=== PATIENT | male | born 1960 | race Caucasian/White ===

== ENCOUNTER 2019-02-09 13:47 | Inpatient (IN) | payer OTHER ==
[2019-02-09] MEDS ORDERED: MORPHINE SULFATE 4 MG/ML SYRINGE IM STA (14:14)
--- NOTE | 2019-02-09 14:51 | US ---
EXAMINATION TYPE: US venous doppler duplex LE RT DATE OF EXAM: 02/09/2019 2:41 PM COMPARISON: NONE CLINICAL HISTORY: Pain. Right lower leg pain and bruising SIDE PERFORMED: Right TECHNIQUE: The lower extremity deep venous system is examined utilizing real time linear array sonog autumn with graded compression, doppler sonography and color-flow sonography. VESSELS IMAGED: External Iliac Vein (EIV) Common Femoral Vein Deep Femoral Vein Greater Saphenous Vein * Femoral Vein Popliteal Vein Small Saphenous Vein * Proximal Calf Veins (* superficial vessels) Right Leg: Positive for DVT, there is nonocclusive thrombus in right pop vein through prox calf vein s, the vessel shows echoes and some echgenic stranding, and in partially compressible. IMPRESSION: 1. Right lower extremity deep venous ultrasound has nonocclusive thrombus within the deep venous stru ctures. Deep venous thrombosis is present on the right.
[2019-02-09] MEDS ORDERED: SODIUM CHLORIDE 0.9% 1,000 ML IV ONE (15:06)
--- NOTE | 2019-02-09 15:08 | ED ---
Lower Extremity Injury HPI - General Chief Complaint: Extremity Injury, Lower Stated Complaint: poss blood clot-sent by [facility] Time Seen by Provider: 02/09/19 14:01 Source: patient, RN notes reviewed, old records reviewed Mode of arrival: ambulatory Limitations: no limitations - History of Present Illness Initial Comments: Patient is a 50-year-old male presenting to the emergency department today for check of right lower extremity swelling. Patient reports that one week ago he was at his home [place] at the beach. Patient reports that he tripped while in the ocean and landed on his leg and his knee. Because significant knee she reports he is here on vacation for both week he is going to visit a friend and have parties on his boat. Patient reports that he has had some minor shortness of breath. He recommended to emergency department after see [facility]. Patient flew here yesterday from [place]. Patient was sent here to rule out DVT. He's had no history of blood clots. - Related Data Home Medications Medication Instructions Recorded Confirmed Albuterol Inhaler [Ventolin Hfa 1 - 2 puff INHALATION RT-Q6H PRN 02/09/19 02/09/19 Inhaler] Albuterol Nebulized [Ventolin 2.5 mg INHALATION RT-QID PRN 02/09/19 02/09/19 Nebulized] Atorvastatin Calcium [Lipitor] 10 mg PO DAILY 02/09/19 02/09/19 Budesonide/Formoterol Fumarate 2 puff INHALATION RT-DAILY@1400 02/09/19 02/09/19 [Symbicort 160-4.5 Mcg Inhaler] Gabapentin [Neurontin] 100 mg PO DAILY 02/09/19 02/09/19 Gabapentin [Neurontin] 400 mg PO HS 02/09/19 02/09/19 Glimepiride [Amaryl] 4 mg PO BID 02/09/19 02/09/19 Lisinopril-Hctz 20-25 mg 1 tab PO DAILY 02/09/19 02/09/19 [Zestoretic 20-25] Tiotropium 18 Mcg/Puff [Spiriva] 1 cap INHALATION RT-DAILY 02/09/19 02/09/19 clonazePAM 0.5 mg PO DAILY 02/09/19 02/09/19 metFORMIN HCL 1,000 mg PO BID 02/09/19 02/09/19 traZODone HCL [Desyrel] 100 mg PO HS 02/09/19 02/09/19 Allergies Allergy/AdvReac Type Severity Reaction Status Date / Time No Known Allergies Allergy Verified 02/09/19 17:11 Review of Systems ROS Statement: Those systems with pertinent positive or pertinent negative responses have been documented in the HPI. ROS Other: All systems not noted in ROS Statement are negative. Past Medical History Past Medical History: Heart Failure, COPD, Hypertension, Pneumonia, Sleep Apnea/CPAP/BIPAP Additional Past Medical History / Comment(s): brain injury, acute respiratory failure, bilateral pneumothorax History of Any Multi-Drug Resistant Organisms: None Reported Past Surgical History: Orthopedic Surgery Additional Past Surgical History / Comment(s): left shoulder surgery, x3 left elbow surgeries Past Psychological History: Anxiety, Depression Smoking Status: Never smoker Past Alcohol Use History: Occasional Past Drug Use History: None Reported General Exam Limitations: no limitations General appearance: alert, in no apparent distress Head exam: Present: atraumatic, normocephalic, normal inspection Eye exam: Present: normal appearance, PERRL, EOMI. Absent: scleral icterus, conjunctival injection, periorbital swelling ENT exam: Present: normal exam, mucous membranes moist Neck exam: Present: normal inspection. Absent: tenderness, meningismus, lymphadenopathy Respiratory exam: Present: normal lung sounds bilaterally. Absent: respiratory distress, wheezes, rales, rhonchi, stridor Cardiovascular Exam: Present: regular rate, normal rhythm, normal heart sounds. Absent: systolic murmur, diastolic murmur, rubs, gallop, clicks GI/Abdominal exam: Present: soft, normal bowel sounds. Absent: distended, tenderness, guarding, rebound, rigid Extremities exam: Present: normal inspection, full ROM, normal capillary refill. Absent: tenderness, pedal edema, joint swelling, calf tenderness Right Upper Leg exam: Present: normal inspection, full ROM Knee exam: Present: full ROM, swelling (significant laxity within knee joint,patellar effusion noted. ). Absent: normal inspection Lower Leg exam: Present: swelling (Patient has swelling, discoloration over the lower extremity, significant ecchymosis extending from the lower calf up to the mid thigh.) Ankle exam: Present: normal inspection, full ROM Foot/Toe exam: Present: normal inspection, full ROM Neurovascular tendon exam: Present: no vascular compromise Gait: observed and normal Back exam: Present: normal inspection Neurological exam: Present: alert, oriented X3, CN II-XII intact Psychiatric exam: Present: normal affect, normal mood Skin exam: Present: warm, dry, intact, normal color. Absent: rash Course Vital Signs 02/09/19 02/09/19 13:48 16:52 Temperature 97.5 F L Pulse Rate 90 77 Respiratory 18 18 Rate Blood Pressure 129/62 137/88 O2 Sat by Pulse 97 96 Oximetry Medical Decision Making - Medical Decision Making Patient is a 58-year-old male presents today with significant lower extremity swelling. Concern for possible blood clot after traumatic injury after he fell on the beach one week ago. Patient flew here from his home in [place]. Patient has evidence of a significant hematoma over her lower extremity, phlegmonas appearance. There is significant effusion within the right knee joint. He has had some pain with range of motion. Dorsalis pedis pulses intact. At this time Patient had Doppler ultrasound which is positive for DVT within the proximal calf and to proximal popliteal veins. Patient started on high intensity heparin. He also complains of shortness of breath. CT angios the chest was negative for PE. At this time femur and tib-fib x-ray reviewed and negative for any acute osseous abnormality. Patient case discussed with Dr. uBi. Dr. Ann discussed the case with on-call vascular surgery who came to evaluate the Patient. He was evaluated by Dr. Bass. He agrees for admission for IV heparinization. - Lab Data Result diagrams: 02/09/19 15:22 02/09/19 15:22 Lab Results 02/09/19 02/09/19 02/09/19 Range/Units 15:22 15:22 15:22 WBC 9.3 (3.8-10.6) k/uL RBC 4.40 (4.30-5.90) m/uL Hgb 14.3 (13.0-17.5) gm/dL Hct 41.6 (39.0-53.0) % MCV 94.6 (80.0-100.0) fL MCH 32.6 (25.0-35.0) pg MCHC 34.4 (31.0-37.0) g/dL RDW 14.2 (11.5-15.5) % Plt Count 266 (150-450) k/uL Neutrophils % 74 % Lymphocytes % 18 % Monocytes % 4 % Eosinophils % 2 % Basophils % 1 % Neutrophils # 6.8 (1.3-7.7) k/uL Lymphocytes # 1.7 (1.0-4.8) k/uL Monocytes # 0.4 (0-1.0) k/uL Eosinophils # 0.2 (0-0.7) k/uL Basophils # 0.1 (0-0.2) k/uL PT 9.6 (9.0-12.0) sec INR 0.9 (<1.2) APTT 21.6 L (22.0-30.0) sec Sodium 142 (137-145) mmol/L Potassium 4.2 (3.5-5.1) mmol/L Chloride 106 (98-107) mmol/L Carbon Dioxide 25 (22-30) mmol/L Anion Gap 11 mmol/L BUN 21 H (9-20) mg/dL Creatinine 0.73 (0.66-1.25) mg/dL Est GFR (CKD-EPI)AfAm >90 (>60 ml/min/1.73 sqM) Est GFR (CKD-EPI)NonAf >90 (>60 ml/min/1.73 sqM) Glucose 200 H (74-99) mg/dL Calcium 9.8 (8.4-10.2) mg/dL Total Bilirubin 0.6 (0.2-1.3) mg/dL AST 19 (17-59) U/L ALT 15 L (21-72) U/L Alkaline Phosphatase 73 (38-126) U/L Total Protein 7.2 (6.3-8.2) g/dL Albumin 4.5 (3.5-5.0) g/dL 02/09/19 17:09 EKG shows sinus rhythm with immature subjective or ventricular compresses. Otherwise normal EKG. Ventricular rate 79 bpm. LA interval 156 ms. QRS duration is 104 ms. QTQTC 3-2/438 ms. - Radiology Data Radiology results: report reviewed Regular shortly ultrasound is nonocclusive thrombus within the deep venous structure. Deep venous thrombosis is present on the right. X-ray of the tib- fib is negative for any acute osseous adamantly. No acute osseous normality and regular. Degenerative joint she is in the right hip and knee. CT angio chest is negative for acute pulmonary embolism. Prominence of the right adrenal gland. Disposition Clinical Impression: Right leg DVT, Knee effusion, Fall Disposition: ADMITTED IP TO THIS HOSP Condition: Stable Is patient prescribed a controlled substance at d/c from ED?: No Referrals: Nonstaff,Physician [Primary Care Provider] - 1-2 days Time of Disposition: 17:09
[2019-02-09 15:35] LABS: Basophils # (A) 0.1 k/uL (0-0.2); Basophils % (A) 1 %; Eosinophils # (A) 0.2 k/uL (0-0.7); Eosinophils % (A) 2 %; HCT 41.6 % (39.0-53.0); HGB 14.3 gm/dL (13.0-17.5); Lymphocytes # (A) 1.7 k/uL (1.0-4.8); Lymphocytes % (A) 18 %; MCH 32.6 pg (25.0-35.0); MCHC 34.4 g/dL (31.0-37.0); MCV 94.6 fL (80.0-100.0); Mean Platelet Volume 7.3; Monocytes # (A) 0.4 k/uL (0-1.0); Monocytes % (A) 4 %; Neutrophils # (A) 6.8 k/uL (1.3-7.7); Neutrophils % (A) 74 %; Platelet Count 266 k/uL (150-450); RDW 14.2 % (11.5-15.5); WBC 9.3 k/uL (3.8-10.6)
--- NOTE | 2019-02-09 15:44 | XR ---
EXAMINATION TYPE: XR femur RT DATE OF EXAM: 02/09/2019 COMPARISON: None HISTORY: Pain following fall TECHNIQUE: 2 view right femur FINDINGS: There is narrowing of the joint space at the right hip. Degenerative changes are also noted at the knee. The visualized femur appears intact. No acute femoral fractures are evident. IMPRESSION: 1. No acute osseous abnormality right femur. 2. Degenerative joint changes of the right hip and right knee
--- NOTE | 2019-02-09 15:45 | XR ---
EXAMINATION TYPE: XR tibia fibula RT DATE OF EXAM: 02/09/2019 COMPARISON: None HISTORY: Fall, pain TECHNIQUE: 2 view right tibia and fibula FINDINGS: There are degenerative changes at the knee with narrowing of the medial lateral compartment joint spaces. No acute fractures are evident. Ankle appears unremarkable as visualized. No focal swelling is identified. Follow-up studies of the right femur or right tibia and fibula can be performed 7-10 days from acute trauma for continued pain. IMPRESSION: 1. No acute osseous abnormality.
[2019-02-09 15:59] LABS: ALT 15 U/L (21-72); AST 19 U/L (17-59); African American GFR (CKD) >90 (>60 ml/min/1.73 sqM); Albumin 4.5 g/dL (3.5-5.0); Alkaline Phosphatase 73 U/L (38-126); Anion Gap 11 mmol/L; Blood Urea Nitrogen 21 mg/dL (9-20); Calcium 9.8 mg/dL (8.4-10.2); Carbon Dioxide 25 mmol/L (22-30); Chloride 106 mmol/L (98-107); Glucose 200 mg/dL (74-99); Potassium 4.2 mmol/L (3.5-5.1); Sodium 142 mmol/L (137-145); Total Bilirubin 0.6 mg/dL (0.2-1.3); Total Protein 7.2 g/dL (6.3-8.2)
[2019-02-09 16:03] LABS: INR 0.9 (<1.2); Partial Thromboplastin Time 21.6 sec (22.0-30.0); Prothrombin Time 9.6 sec (9.0-12.0)
[2019-02-09] MEDS ORDERED: HEPARIN SODIUM,PORCINE 5,000 UNIT/ML 1 ML VIAL IV PRN (16:10)
[2019-02-09] MEDS ORDERED: HEPARIN SODIUM,PORCINE 10,000 UNIT/ML 1 ML VIAL IV ONE (16:10)
--- NOTE | 2019-02-09 16:25 | CT ---
CT CHEST FOR PULMONARY EMBOLISM. EXAMINATION TYPE: CT chest angio for PE DATE OF EXAM: 02/09/2019 INDICATION: Right knee pain after injury. Shortness of breath. CT DLP: 800.1 mGycm, Automated exposure control for dose reduction was used. CONTRAST: Patient injected with 100 mL of Isovue 370. COMPARISON: None TECHNIQUE: CT of the chest is performed on a spiral scan at 2 mm thick sections. Study is performed with intravenous contrast timed for evaluation for pulmonary embolism. This will limit additional po rtions of the evaluation. 3-D MIP images reconstructed by the technologist are reviewed on the compu ter in the coronal and sagittal planes. FINDINGS: No persistent filling defects are evident to suggest an acute pulmonary embolism. No mediastinal or hilar adenopathy enlarged by CT criteria is evident. The ascending aorta diameter at the level of the main pulmonary artery is 3.9 cm. The main pulmonary artery diameter at the bifur cation is 3.1 cm. No suspicious lung consolidations are evident. Limited CT section through the upper abdomen. There is some fullness of the posterior right adrenal g land with a thickness of 1.9 cm. IMPRESSIONS: 1. No acute pulmonary embolism. 2. Prominence of the right adrenal gland
[2019-02-09] MEDS: HEPARIN SOD,PORK IN 0.45% NACL 25,000 UNIT in 0.45% NACL 1 250ML.BAG IV SCH (16:50)
[2019-02-09] MEDS ORDERED: ACETAMINOPHEN TAB 325 MG TAB PO PRN (17:19)
[2019-02-09] MEDS ORDERED: NALOXONE 0.4 MG/ML 1 ML VIAL IV PRN (17:19)
[2019-02-09] MEDS ORDERED: ONDANSETRON 4 MG/2 ML VIAL IVP PRN (17:19)
[2019-02-09] MEDS ORDERED: IBUPROFEN 400 MG TAB PO PRN (17:19)
--- NOTE | 2019-02-09 17:42 | P.GSCN ---
History of Present Illness Consult date: 02/09/19 Reason for Consult: Right lower extremity swelling, DVT History of present illness: The patient is a 58-year-old male with a past medical history including obstructive sleep apnea,Chronic heart failure, COPD, hypertension, diabetes, neuropathy who presented for evaluation of his right lower trauma swelling. One week ago he was at the [place] in [place] where he lives, he reported he was swimming in the admission and had significant difficulty getting out with and had some traumatic feeling to his right knee. Beyond this he began having some bruising of his lower extremity. Approximately 3-4 days ago he began having increased swelling with some redness towards his lower leg and ankle. He has had some minor soreness of breath along with this. He denies any previous history of blood clot although his father did have one in the past. They're uncertain of the reason for that blood clot in the past. He denies any chest pains otherwise. He denies any nausea or vomiting. Past Medical History Past Medical History: Heart Failure, COPD, Hypertension, Pneumonia, Sleep Apnea/CPAP/BIPAP Additional Past Medical History / Comment(s): brain injury, acute respiratory failure, bilateral pneumothorax History of Any Multi-Drug Resistant Organisms: None Reported Past Surgical History: Orthopedic Surgery Additional Past Surgical History / Comment(s): left shoulder surgery, x3 left elbow surgeries Past Psychological History: Anxiety, Depression Smoking Status: Never smoker Past Alcohol Use History: Occasional Past Drug Use History: None Reported Medications and Allergies Home Medications Medication Instructions Recorded Confirmed Type Albuterol Inhaler [Ventolin Hfa 1 - 2 puff INHALATION RT-Q6H PRN 02/09/19 02/09/19 History Inhaler] Albuterol Nebulized [Ventolin 2.5 mg INHALATION RT-QID PRN 02/09/19 02/09/19 History Nebulized] Atorvastatin Calcium [Lipitor] 10 mg PO DAILY 02/09/19 02/09/19 History Budesonide/Formoterol Fumarate 2 puff INHALATION RT-DAILY@1400 02/09/19 02/09/19 History [Symbicort 160-4.5 Mcg Inhaler] Gabapentin [Neurontin] 100 mg PO DAILY 02/09/19 02/09/19 History Gabapentin [Neurontin] 400 mg PO HS 02/09/19 02/09/19 History Glimepiride [Amaryl] 4 mg PO BID 02/09/19 02/09/19 History Lisinopril-Hctz 20-25 mg 1 tab PO DAILY 02/09/19 02/09/19 History [Zestoretic 20-25] Tiotropium 18 Mcg/Puff [Spiriva] 1 cap INHALATION RT-DAILY 02/09/19 02/09/19 History clonazePAM 0.5 mg PO DAILY 02/09/19 02/09/19 History metFORMIN HCL 1,000 mg PO BID 02/09/19 02/09/19 History traZODone HCL [Desyrel] 100 mg PO HS 02/09/19 02/09/19 History Allergies Allergy/AdvReac Type Severity Reaction Status Date / Time No Known Allergies Allergy Verified 02/09/19 17:11 Surgical - Exam Vital Signs Temp Pulse Resp BP Pulse Ox 97.5 F L 90 18 129/62 97 02/09/19 13:48 02/09/19 13:48 02/09/19 13:48 02/09/19 13:48 02/09/19 13:48 General a pleasant cooperative male in no acute distress, obese HEENT normocephalic atraumatic, excellent motion intact Heart is regular in rate and rhythm Lungs showed no respiratory distress. Good lung excursion Abdomen is soft obese nontender nondistended Bilateral groins are clean, dry, intact. Extremities on the right lower extremity there is areas of ecchymosis from the calf through the knee. There is also some erythema likely due to venous congestion at the level of the ankle. No venous wound. He has palpable femoral, dorsalis pedis pulses bilaterally. Motor sensory is intact Cranial nerves II through XII grossly intact Normal mood and affect. Results - Labs 02/09/19 15:22 02/09/19 15:22 Abnormal Lab Results - Last 24 Hours (Table) 02/09/19 02/09/19 Range/Units 15:22 15:22 APTT 21.6 L (22.0-30.0) sec BUN 21 H (9-20) mg/dL Glucose 200 H (74-99) mg/dL ALT 15 L (21-72) U/L Diabetes panel 02/09/19 Range/Units 15:22 Sodium 142 (137-145) mmol/L Potassium 4.2 (3.5-5.1) mmol/L Chloride 106 (98-107) mmol/L Carbon Dioxide 25 (22-30) mmol/L BUN 21 H (9-20) mg/dL Creatinine 0.73 (0.66-1.25) mg/dL Glucose 200 H (74-99) mg/dL Calcium 9.8 (8.4-10.2) mg/dL AST 19 (17-59) U/L ALT 15 L (21-72) U/L Alkaline Phosphatase 73 (38-126) U/L Total Protein 7.2 (6.3-8.2) g/dL Albumin 4.5 (3.5-5.0) g/dL Calcium panel 02/09/19 Range/Units 15:22 Calcium 9.8 (8.4-10.2) mg/dL Albumin 4.5 (3.5-5.0) g/dL Pituitary panel 02/09/19 Range/Units 15:22 Sodium 142 (137-145) mmol/L Potassium 4.2 (3.5-5.1) mmol/L Chloride 106 (98-107) mmol/L Carbon Dioxide 25 (22-30) mmol/L BUN 21 H (9-20) mg/dL Creatinine 0.73 (0.66-1.25) mg/dL Glucose 200 H (74-99) mg/dL Calcium 9.8 (8.4-10.2) mg/dL Adrenal panel 02/09/19 Range/Units 15:22 Sodium 142 (137-145) mmol/L Potassium 4.2 (3.5-5.1) mmol/L Chloride 106 (98-107) mmol/L Carbon Dioxide 25 (22-30) mmol/L BUN 21 H (9-20) mg/dL Creatinine 0.73 (0.66-1.25) mg/dL Glucose 200 H (74-99) mg/dL Calcium 9.8 (8.4-10.2) mg/dL Total Bilirubin 0.6 (0.2-1.3) mg/dL AST 19 (17-59) U/L ALT 15 L (21-72) U/L Alkaline Phosphatase 73 (38-126) U/L Total Protein 7.2 (6.3-8.2) g/dL Albumin 4.5 (3.5-5.0) g/dL - Imaging Additional studies: Ultrasound of the right lower extremity and CT angiogram the chest are reviewed. There appears to be nonocclusive thrombus in the right popliteal and calf veins. No evidence of iliofemoral thrombus. Chest CT reveals no evidence of pulmonary embolism Assessment and Plan Assessment: #1 right lower extremity edema #2 right lower extremity trauma with ecchymosis #3 right lower extremity popliteal/calf DVT #4 diabetes #5 hypertension #6 COPD #7 congestive heart failure Plan: At this point there is no indication for thrombolysis. There is no evidence of cerulea dolens. This time would continue anticoagulation, even though this is essentially a minor DVT, given the patient's recent traumatic event in the extent of his ecchymosis of his lower extremity, would recommend doing this as at least an observation status and transitioning over to oral anticoagulation. This is discussed with the ER physician. The patient understands and seemingly agrees with the plan of care at this time. Activity as tolerated, would also involve orthopedics to evaluate his knee and lower extremity. There are no restrictions from a vascular surgery standpoint. Would place GEE hose compression stockings to the bilateral lower extremities and elevate when possible. Thank you for allowing me to participate in the care of this patient.
[2019-02-09] MEDS: MORPHINE SULFATE 4 MG/ML SYRINGE IV PRN ×2 (18:28→21:59)
[2019-02-09] MEDS: INSULIN ASPART (NovoLOG) 100 UNIT/ML VIAL SQ SCH (21:58)
[2019-02-09] MEDS: GABAPENTIN 400 MG CAP PO SCH (21:58)
[2019-02-09] MEDS: traZODone HCL 100 MG TAB PO SCH (21:58)
[2019-02-09] MEDS: GLIMEPIRIDE 4 MG TAB PO SCH (21:59)
[2019-02-09 22:12] LABS: Glucose,Whole Blood 197 mg/dL (75-99)
[2019-02-09] MEDS: ALBUTEROL NEBULIZED 2.5 MG/3 ML INHALATION PRN (23:27)
[2019-02-10] MEDS: HEPARIN SOD,PORK IN 0.45% NACL 25,000 UNIT in 0.45% NACL 1 250ML.BAG IV SCH ×3 (00:36→18:24)
[2019-02-10] MEDS: ALBUTEROL NEBULIZED 2.5 MG/3 ML INHALATION PRN ×2 (03:14→19:03)
[2019-02-10] MEDS: MORPHINE SULFATE 4 MG/ML SYRINGE IV PRN ×4 (05:06→18:14)
[2019-02-10 07:02] LABS: Glucose,Whole Blood 180 mg/dL (75-99)
[2019-02-10] MEDS: INSULIN ASPART (NovoLOG) 100 UNIT/ML VIAL SQ SCH ×4 (07:45→21:40)
[2019-02-10] MEDS: IPRATROPIUM 0.5 MG/2.5 ML NEBU INHALATION SCH ×4 (08:02→18:58)
[2019-02-10] MEDS: ATORVASTATIN 10 MG TAB PO SCH (08:43)
[2019-02-10] MEDS: GABAPENTIN 100 MG CAP PO SCH (08:43)
[2019-02-10] MEDS: LISINOPRIL-HCTZ 20-25 MG 1 EACH TAB PO SCH (08:43)
[2019-02-10] MEDS: GLIMEPIRIDE 4 MG TAB PO SCH ×2 (08:43→21:38)
[2019-02-10] MEDS ORDERED: PANTOPRAZOLE 40 MG/10 ML VIAL IV SCH (09:00)
[2019-02-10 09:06] LABS: Basophils % (A) 0 %; Eosinophils # (A) 0.2 k/uL (0-0.7); Eosinophils % (A) 2 %; HCT 39.1 % (39.0-53.0); HGB 13.3 gm/dL (13.0-17.5); Lymphocytes # (A) 2.2 k/uL (1.0-4.8); Lymphocytes % (A) 24 %; MCH 32.6 pg (25.0-35.0); MCHC 33.9 g/dL (31.0-37.0); MCV 96.2 fL (80.0-100.0); Mean Platelet Volume 7.3; Monocytes # (A) 0.5 k/uL (0-1.0); Monocytes % (A) 5 %; Neutrophils # (A) 6.1 k/uL (1.3-7.7); Neutrophils % (A) 67 %; Platelet Count 247 k/uL (150-450); RBC 4.06 m/uL (4.30-5.90); RDW 14.5 % (11.5-15.5); WBC 9.1 k/uL (3.8-10.6)
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
[2019-02-10] MEDS: clonazePAM 0.5 MG TAB PO SCH (09:34)
[2019-02-10] MEDS ORDERED: LIDOCAINE 1% INJ 10MG/ML (20 ML MDV) SQ ONE (10:35)
[2019-02-10 11:39] LABS: Glucose,Whole Blood 216 mg/dL (75-99)
[2019-02-10] MEDS: NITROGLYCERIN SL TABS 0.4 MG TAB SUBLINGUAL PRN ×3 (11:39→12:12)
--- NOTE | 2019-02-10 14:10 | P.HPIM ---
History of Present Illness Chief Complaint: Right lower extremity pain This very pleasant 58-year-old gentleman with a past medical history significant for obesity, or failure, COPD, hypertension, diabetes comes in for above- mentioned complaint. Patient says that he's basically from [place] and is visiting [place]. He said that a week ago he went to the beach in [place] and went swimming around 3:00 in the morning and injured his right lower extremity. He said that he noticed some bruising in his right lower extremity after that. 3-4 days ago he started noticing increased pain and increased swelling with some redness. He came to [place] in the meanwhile and his symptoms were actually getting worse so he came into the ER for further admission and management. Patient otherwise says that this morning he started feeling heaviness in the chest as if summary sitting on top of of him pain around 7 x 10 intensity no radiation, he said that he is also feeling short of breath and difficulty taking deep breaths, no cough, he does not complain of any abdominal pain, nausea and vomiting, no diarrhea constipation, no tingling numbness on his extremities, and no itch no rash. ER course-patient's vitals show temperature 97.9 pulse 80 respiration 18 blood pressure 107/69 satting 95% on room air. WBC 9.1 hemoglobin 13.3 platelets [address] troponins less than 0.012. [address] of the chest was done which was negative . Ultrasound the right lower extremity showed DVT on the right popliteal vein through the proximal calf veins Patient had a CT of the chest done which was negative. Patient was started heparin drip and admitted to the hospitalist service for evaluation and management Review of Systems All systems: negative Past Medical History Past Medical History: Heart Failure, COPD, Hypertension, Pneumonia, Sleep Apnea/CPAP/BIPAP Additional Past Medical History / Comment(s): brain injury, acute respiratory failure, bilateral pneumothorax History of Any Multi-Drug Resistant Organisms: None Reported Past Surgical History: Orthopedic Surgery Additional Past Surgical History / Comment(s): left shoulder surgery, x3 left elbow surgeries Past Anesthesia/Blood Transfusion Reactions: No Reported Reaction Past Psychological History: Anxiety, Depression Smoking Status: Never smoker Past Alcohol Use History: Occasional Past Drug Use History: None Reported - Past Family History Mother Family Medical History: Dementia Father Family Medical History: Cancer Medications and Allergies Home Medications Medication Instructions Recorded Confirmed Type Albuterol Inhaler [Ventolin Hfa 1 - 2 puff INHALATION RT-Q6H PRN 02/09/19 02/09/19 History Inhaler] Albuterol Nebulized [Ventolin 2.5 mg INHALATION RT-QID PRN 02/09/19 02/09/19 History Nebulized] Atorvastatin Calcium [Lipitor] 10 mg PO DAILY 02/09/19 02/09/19 History Budesonide/Formoterol Fumarate 2 puff INHALATION RT-DAILY@1400 02/09/19 02/09/19 History [Symbicort 160-4.5 Mcg Inhaler] Gabapentin [Neurontin] 100 mg PO DAILY 02/09/19 02/09/19 History Gabapentin [Neurontin] 400 mg PO HS 02/09/19 02/09/19 History Glimepiride [Amaryl] 4 mg PO BID 02/09/19 02/09/19 History Lisinopril-Hctz 20-25 mg 1 tab PO DAILY 02/09/19 02/09/19 History [Zestoretic 20-25] Tiotropium 18 Mcg/Puff [Spiriva] 1 cap INHALATION RT-DAILY 02/09/19 02/09/19 History clonazePAM 0.5 mg PO DAILY 02/09/19 02/09/19 History metFORMIN HCL 1,000 mg PO BID 02/09/19 02/09/19 History traZODone HCL [Desyrel] 100 mg PO HS 02/09/19 02/09/19 History Allergies Allergy/AdvReac Type Severity Reaction Status Date / Time No Known Allergies Allergy Verified 02/09/19 17:11 Physical Exam Vitals: Vital Signs Temp Pulse Pulse Resp BP BP BP 02/10/19 12:10 77 128/80 02/10/19 11:53 78 02/10/19 11:50 69 108/59 02/10/19 11:43 78 02/10/19 11:39 71 106/69 02/10/19 08:33 75 127/71 02/10/19 08:13 80 02/10/19 08:02 80 02/10/19 07:00 98.0 F 75 16 130/71 02/10/19 03:30 76 02/10/19 03:15 76 02/10/19 00:40 98.0 F 76 16 126/71 07/18/19 23:40 80 02/09/19 23:27 80 02/09/19 21:37 98.3 F 79 17 98/51 02/09/19 18:38 97.9 F 84 16 127/73 02/09/19 17:38 87 18 134/87 02/09/19 16:52 77 18 137/88 Pulse Ox 02/10/19 12:10 02/10/19 11:53 02/10/19 11:50 99 02/10/19 11:43 02/10/19 11:39 95 02/10/19 08:33 95 02/10/19 08:13 02/10/19 08:02 02/10/19 07:00 96 02/10/19 03:30 02/10/19 03:15 02/10/19 00:40 92 L 02/09/19 23:40 02/09/19 23:27 02/09/19 21:37 97 02/09/19 18:38 97 02/09/19 17:38 99 02/09/19 16:52 96 Intake and Output 02/09/19 02/10/19 02/10/19 22:59 06:59 14:59 Intake Total 705.117 450 Output Total 900 Balance 705.117 -450 Intake: Intake, IV Titration 225.117 250 Amount Heparin Sod,Pork in 0.45% 225.117 250 NaCl 25,000 unit In 0.45 % NaCl 1 250ml.bag @ 14. 2835 UNITS/KG/HR 23 mls/ hr IV .[id number] [facility] Rx#: [id number] Oral 480 200 Output: Urine 900 Other: Voiding Method Toilet # Voids 1 1 On exam, alert and oriented x3. Morbidly obese HEENT: Conjunctivae normal. eyes normal. NECK: No JVD. No thyroid enlargement. No LNs CARDIOVASCULAR: S1, S2 muffled. No murmur RESPIRATION: Breath sounds diminished in the bases. No rhonchi or crackles. No bronchial breathing. ABDOMEN: Soft, nontender . No guarding. no masses palpable. No ascites, No hepatosplenomegaly.Bowel sounds heard. LEGS: Right lower extremity is more swollen dried in the midshin area and having bruising all over up to the thigh on the lateral side NERVOUS SYSTEM: Cranial N 2-12 grossly normal. Moves all 4 limbs. No focal deficits. No sensory deficit. No signs of cerebellar dysfucntion. Skin: no ulcer no rash Joints: Patient was also having pain in the right knee Results CBC & Chem 7: 02/10/19 08:01 02/09/19 15:22 Labs: Abnormal Lab Results - Last 24 Hours (Table) 02/09/19 02/09/19 02/09/19 Range/Units 15:22 15:22 20:46 RBC (4.30-5.90) m/uL APTT 21.6 L 57.8 H (22.0-30.0) sec BUN 21 H (9-20) mg/dL Glucose 200 H (74-99) mg/dL POC Glucose (mg/dL) (75-99) mg/dL ALT 15 L (21-72) U/L 02/09/19 02/10/19 02/10/19 Range/Units 21:50 06:42 08:01 RBC 4.06 L (4.30-5.90) m/uL APTT (22.0-30.0) sec BUN (9-20) mg/dL Glucose (74-99) mg/dL POC Glucose (mg/dL) 197 H 180 H (75-99) mg/dL ALT (21-72) U/L 02/10/19 02/10/19 Range/Units 08:01 11:32 RBC (4.30-5.90) m/uL APTT 54.2 H (22.0-30.0) sec BUN (9-20) mg/dL Glucose (74-99) mg/dL POC Glucose (mg/dL) 216 H (75-99) mg/dL ALT (21-72) U/L Thrombosis Risk Factor Assmnt - Choose All That Apply Any of the Below Risk Factors Present?: Yes Each Factor Represents 1 point: Age 41-60 years Thrombosis Risk Factor Assessment Total Risk Factor Score: 1 Thrombosis Risk Factor Assessment Level: Low Risk Assessment and Plan Assessment: - Right lower extremity DVT - Chest pain need to rule out the cause - Right right knee pain - Obesity - MEKA - Hypertension - Diabetes Plan - We'll admit the patient to [facility] with telemetry under observation - The patient currently controlled on heparin. We'll ask case management to help him up with executive vice president and chief financial officer for the [employer] - Also cardiology is consulted as the patient was complaining of chest pain in the morning. We'll monitor the patient's EKG and his tropes. He was also complaining of active chest pains we'll give him some nitro SUBLINGUAL to help with the pain. - We'll resume the patient's rest of the medications - DVT and GI prophylaxis - We will we'll order for lab work in the morning - Patient is an observation - Patient is full code
--- NOTE | 2019-02-10 14:57 | XR ---
EXAMINATION TYPE: XR foot complete RT DATE OF EXAM: 02/10/2019 CLINICAL HISTORY: pain TECHNIQUE: Frontal, lateral and oblique images of the right foot are obtained. COMPARISON: None. FINDINGS: There is no acute fracture/dislocation evident. [id number] degenerative narrowing fi rst metatarsal phalangeal joint space. Subchondral cyst formation. The overlying soft tissue appears unremarkable. IMPRESSION: There is no acute fracture or dislocation. ICD 10 NO FRACTURE, INITIAL EVALUATION
[2019-02-10 16:44] LABS: Glucose,Whole Blood 202 mg/dL (75-99)
[2019-02-10 20:07] LABS: Glucose,Whole Blood 219 mg/dL (75-99)
[2019-02-10] MEDS: GABAPENTIN 400 MG CAP PO SCH (21:38)
[2019-02-10] MEDS: traZODone HCL 100 MG TAB PO SCH (21:39)
[2019-02-11] MEDS: MORPHINE SULFATE 4 MG/ML SYRINGE IV PRN ×3 (00:14→16:33)
[2019-02-11] MEDS: HEPARIN SOD,PORK IN 0.45% NACL 25,000 UNIT in 0.45% NACL 1 250ML.BAG IV SCH ×3 (01:59→22:21)
[2019-02-11 07:05] LABS: Glucose,Whole Blood 176 mg/dL (75-99)
[2019-02-11] MEDS: ALBUTEROL NEBULIZED 2.5 MG/3 ML INHALATION PRN ×4 (07:11→20:17)
[2019-02-11] MEDS: Acetaminophen-Codeine 300-30mg TAB PO PRN ×2 (07:41→14:21)
[2019-02-11] MEDS: PANTOPRAZOLE 40 MG TABLET PO SCH (07:41)
[2019-02-11] MEDS: INSULIN ASPART (NovoLOG) 100 UNIT/ML VIAL SQ SCH ×4 (07:44→20:47)
[2019-02-11 08:40] LABS: Basophils % (A) 0 %; Eosinophils # (A) 0.1 k/uL (0-0.7); Eosinophils % (A) 2 %; HCT 38.3 % (39.0-53.0); HGB 12.8 gm/dL (13.0-17.5); Lymphocytes # (A) 1.6 k/uL (1.0-4.8); Lymphocytes % (A) 20 %; MCH 32.1 pg (25.0-35.0); MCHC 33.3 g/dL (31.0-37.0); MCV 96.1 fL (80.0-100.0); Mean Platelet Volume 7.7; Monocytes # (A) 0.4 k/uL (0-1.0); Monocytes % (A) 5 %; Neutrophils # (A) 5.9 k/uL (1.3-7.7); Neutrophils % (A) 73 %; Platelet Count 234 k/uL (150-450); RBC 3.99 m/uL (4.30-5.90); RDW 14.5 % (11.5-15.5); WBC 8.1 k/uL (3.8-10.6)
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
[2019-02-11] MEDS: GLIMEPIRIDE 4 MG TAB PO SCH ×2 (09:05→20:47)
[2019-02-11] MEDS: clonazePAM 0.5 MG TAB PO SCH (09:05)
[2019-02-11] MEDS: ATORVASTATIN 10 MG TAB PO SCH (09:05)
[2019-02-11] MEDS: LISINOPRIL-HCTZ 20-25 MG 1 EACH TAB PO SCH (09:05)
[2019-02-11] MEDS: GABAPENTIN 100 MG CAP PO SCH (09:05)
[2019-02-11 09:22] LABS: African American GFR (CKD) >90 (>60 ml/min/1.73 sqM); Anion Gap 11 mmol/L; Blood Urea Nitrogen 13 mg/dL (9-20); Calcium 9.1 mg/dL (8.4-10.2); Carbon Dioxide 25 mmol/L (22-30); Chloride 105 mmol/L (98-107); Glucose 147 mg/dL (74-99); Potassium 3.7 mmol/L (3.5-5.1); Sodium 141 mmol/L (137-145)
[2019-02-11 11:28] LABS: Glucose,Whole Blood 231 mg/dL (75-99)
--- NOTE | 2019-02-11 11:43 | P.PN ---
Subjective Progress Note Date: 02/11/19 Principal diagnosis: Right lower extremity dvt Patient seen and examined. Doing well. No new complaints. States leg swelling and pain is stable. Denies any fevers, chills, nausea, vomiting, chest pain or sob. Objective - Vital Signs Vital signs: Vital Signs Temp 98.4 F 02/11/19 07:00 Pulse 84 02/11/19 11:19 Resp 16 02/11/19 07:00 BP 129/75 02/11/19 07:00 Pulse Ox 98 02/11/19 07:00 Intake & Output 02/10/19 02/11/19 02/11/19 18:59 06:59 18:59 Intake Total 700 899.803 210.141 Output Total 900 Balance -200 899.803 210.141 Intake: Intake, IV Titration 500 219.803 210.141 Amount Heparin Sod,Pork in 0.45% 500 219.803 210.141 NaCl 25,000 unit In 0.45 % NaCl 1 250ml.bag @ 14. 2835 UNITS/KG/HR 23 mls/ hr IV .[id number] [facility] Rx#: [id number] Oral 200 680 Output: Urine 900 Other: Voiding Method Toilet Toilet # Voids 2 1 - Constitutional General appearance: Present: morbidly obese - EENT Eyes: Present: PERRLA - Respiratory Respiratory: bilateral: CTA - Cardiovascular Rhythm: regular - Integumentary Integumentary Comment(s): echymosis right lower extremity with edema extending from the calf to the knee. No wounds. Palpable dp pulses bilaterally. - Labs CBC & Chem 7: 02/11/19 07:09 02/11/19 07:09 Labs: Abnormal Lab Results - Last 24 Hours (Table) 02/10/19 02/10/19 02/10/19 Range/Units 11:32 16:39 20:05 RBC (4.30-5.90) m/uL Hgb (13.0-17.5) gm/dL Hct (39.0-53.0) % APTT (22.0-30.0) sec Glucose (74-99) mg/dL POC Glucose (mg/dL) 216 H 202 H 219 H (75-99) mg/dL 02/11/19 02/11/19 02/11/19 Range/Units 07:04 07:09 07:09 RBC 3.99 L (4.30-5.90) m/uL Hgb 12.8 L (13.0-17.5) gm/dL Hct 38.3 L (39.0-53.0) % APTT 138.9 H* (22.0-30.0) sec Glucose (74-99) mg/dL POC Glucose (mg/dL) 176 H (75-99) mg/dL 02/11/19 02/11/19 Range/Units 07:09 11:26 RBC (4.30-5.90) m/uL Hgb (13.0-17.5) gm/dL Hct (39.0-53.0) % APTT (22.0-30.0) sec Glucose 147 H (74-99) mg/dL POC Glucose (mg/dL) 231 H (75-99) mg/dL Assessment and Plan Assessment: #1 right lower extremity edema #2 right lower extremity trauma with ecchymosis #3 right lower extremity popliteal/calf DVT #4 diabetes #5 hypertension #6 COPD #7 congestive heart failure Plan: No vascular surgical intervention. continue anticoagulation- will need oral anticoagulation (Xarelto or Eliquis) x 3 months. follow up in office in 2 weeks for repeat lower extremity ultrasound. discussed importance of elevation of his extremity. will re-eval at your request.
--- NOTE | 2019-02-11 13:50 | P.PN ---
Subjective This is a pleasant 58 years old male with past medical history of heart failure, COPD, hypertension, sleep apnea on CPAP/BiPAP. Presents with fall, right knee injury and right DVT. Patient has already been started on heparin drip. When I saw the patient today for the first time he was resting in bed comfortable, not in distress. No chest pain or dyspnea. He still have some right leg pain and swelling although it is improving significantly. Also patient has been evaluated by orthopedic team, is a status post right knee aspiration. Patient is mobile with no difficulty discussed with staff review of systems CONSTITUTIONAL: No fever, no malaise, no fatigue. HEENT: No recent visual problems or hearing problems. Denied any sore throat. CARDIOVASCULAR: No orthopnea, PND, no palpitations, no syncope. PULMONARY: No shortness of breath, no cough, no hemoptysis. GASTROINTESTINAL: No diarrhea, no nausea, no vomiting, no abdominal pain. Normoactive bowel sounds. NEUROLOGICAL: No headaches, no weakness, no numbness. HEMATOLOGICAL: Denies any bleeding or petechiae. GENITOURINARY: Denies any burning micturition, frequency, or urgency. MUSCULOSKELETAL/RHEUMATOLOGICAL: Denies any joint pain, swelling, or any muscle pain. ENDOCRINE: Denies any polyuria or polydipsia. Active Medications Generic Name Dose Route Start Last Admin Trade Name Freq PRN Reason Stop Dose Admin Acetaminophen 650 mg 02/09/19 17:19 Tylenol Tab PO Q6HR PRN Mild Pain or Fever > 100.5 Acetaminophen/Codeine Phosphate 1 each 02/09/19 17:19 02/11/19 07:41 Tylenol #3 PO 1 each Q4HR PRN Administration Moderate Pain Albuterol Sulfate 2.5 mg 02/09/19 20:42 02/11/19 11:04 Ventolin Nebulized INHALATION 2.5 mg RT-QID PRN Administration Shortness Of Breath Atorvastatin Calcium 10 mg 02/10/19 09:00 02/11/19 09:05 Lipitor PO 10 mg DAILY NICKI Administration Clonazepam 0.5 mg 02/10/19 09:00 02/11/19 09:05 Klonopin PO 0.5 mg DAILY NICKI Administration Gabapentin 100 mg 02/10/19 09:00 02/11/19 09:05 Neurontin PO 100 mg DAILY NICKI Administration Gabapentin 400 mg 02/09/19 21:00 02/10/19 21:38 Neurontin PO 400 mg HS NICKI Administration Glimepiride 4 mg 02/09/19 21:00 02/11/19 09:05 Amaryl PO 4 mg BID NICKI Administration Lisinopril/HCTZ 1 each 02/10/19 09:00 02/11/19 09:05 Zestoretic 20-25 PO 1 each DAILY NICKI Administration Heparin Sodium (Porcine) 0 unit 02/09/19 16:10 Heparin IV PER PROTOCOL PRN Low PTT Protocol Heparin Sodium/Sodium Chloride 250 mls @ 23 mls/hr 02/09/19 16:15 02/11/19 12:22 25,000 unit/ Sodium Chloride IV 15 units/kg/hr .[id number] NICKI 24.154 mls/hr Administration Protocol 14.2835 UNITS/KG/HR Insulin Aspart 0 unit 02/09/19 21:00 02/11/19 12:13 Novolog SQ 8 unit ACHS NICKI Administration Protocol Miscellaneous Information 0 each 02/11/19 13:46 Coumadin Per Pharmacy MISCELLANE DIRECTED PRN P & T Morphine Sulfate 4 mg 02/09/19 17:19 02/11/19 12:18 Morphine Sulfate (Inj) IV 4 mg Q4HR PRN Administration Severe Pain Naloxone HCl 0.2 mg 02/09/19 17:19 Narcan IV Q2M PRN Opioid Reversal Nitroglycerin 0.4 mg 02/10/19 11:31 02/10/19 12:12 Nitrostat SUBLINGUAL 0.4 mg Q5M PRN Administration Chest Pain Ondansetron HCl 4 mg 02/09/19 17:19 Zofran IVP Q8HR PRN Nausea And Vomiting Pantoprazole Sodium 40 mg 02/11/19 07:30 02/11/19 07:41 Protonix PO 40 mg AC-BRKFST NICKI Administration Trazodone HCl 100 mg 02/09/19 21:00 02/10/19 21:39 Desyrel PO 100 mg HS NICKI Administration Warfarin Sodium 10 mg 02/11/19 18:00 Coumadin PO 02/11/19 18:01 ONCE@1800 ONE Objective - Vital Signs Vital signs: Vital Signs Temp 98.4 F 02/11/19 07:00 Pulse 84 02/11/19 11:19 Resp 16 02/11/19 07:00 BP 129/75 02/11/19 07:00 Pulse Ox 98 02/11/19 07:00 Intake & Output 02/10/19 02/11/19 02/11/19 18:59 06:59 18:59 Intake Total 700 899.803 490.000 Output Total 900 Balance -200 899.803 490.000 Intake: Intake, IV Titration 500 219.803 250.000 Amount Heparin Sod,Pork in 0.45% 500 219.803 250.000 NaCl 25,000 unit In 0.45 % NaCl 1 250ml.bag @ 14. 2835 UNITS/KG/HR 23 mls/ hr IV .[id number] [facility] Rx#: [id number] Oral 200 680 240 Output: Urine 900 Other: Voiding Method Toilet Toilet # Voids 2 1 - Exam GENERAL: The patient is alert and oriented x3, not in any acute distress. Well developed, well nourished. HEENT: Pupils are round and equally reacting to light. EOMI. No scleral icterus. No conjunctival pallor. Normocephalic, atraumatic. No pharyngeal erythema. No thyromegaly. CARDIOVASCULAR: S1 and S2 present. No murmurs, rubs, or gallops. PULMONARY: Chest is clear to auscultation, no wheezing or crackles. ABDOMEN: Soft, nontender, nondistended, normoactive bowel sounds. No palpable organomegaly. MUSCULOSKELETAL: No joint swelling or deformity. -EXTREMITIES: No cyanosis, clubbing, or pedal edema. right leg swelling, or nontender. No right knee swelling NEUROLOGICAL: Gross neurological examination did not reveal any focal deficits. SKIN: No rashes. - Labs CBC & Chem 7: 02/11/19 07:09 02/11/19 07:09 Labs: Abnormal Lab Results - Last 24 Hours (Table) 02/10/19 02/10/19 02/11/19 Range/Units 16:39 20:05 07:04 RBC (4.30-5.90) m/uL Hgb (13.0-17.5) gm/dL Hct (39.0-53.0) % APTT (22.0-30.0) sec Glucose (74-99) mg/dL POC Glucose (mg/dL) 202 H 219 H 176 H (75-99) mg/dL 02/11/19 02/11/19 02/11/19 Range/Units 07:09 07:09 07:09 RBC 3.99 L (4.30-5.90) m/uL Hgb 12.8 L (13.0-17.5) gm/dL Hct 38.3 L (39.0-53.0) % APTT 138.9 H* (22.0-30.0) sec Glucose 147 H (74-99) mg/dL POC Glucose (mg/dL) (75-99) mg/dL 02/11/19 Range/Units 11:26 RBC (4.30-5.90) m/uL Hgb (13.0-17.5) gm/dL Hct (39.0-53.0) % APTT (22.0-30.0) sec Glucose (74-99) mg/dL POC Glucose (mg/dL) 231 H (75-99) mg/dL Assessment and Plan Assessment: - Right lower extremity DVT - Acute tear of the medial collateral ligament of the right knee - Right right knee pain, secondary to above - Obesity - MEKA - Hypertension - Diabetes Plan: This is a pleasant 58 years old male who presents with acute right DVT. Patient has a primary care doctor [place] where he plans to follow up after discharge. However patient remains on heparin drip while the Coumadin was started. Patient states that he has no medical insurance therefore oral a nticoagulants will be limited to Coumadin for financial reasons. Explained to the patient the importance of coumadine, the concept of INR and then need to monitor her INR closely and he verbalized understanding and acceptance. We'll start him on Coumadin 10 mg on follow-up his INR. Orthopedic and vascular surgery team are following the patient closely. No surgical intervention needed. Labs and medication were reviewed.. Continue same treatment. Continue with symptomatic treatment. Resume home medication. Monitor lytes and vitals. DVT and GI prophylaxis. Further recommendations of the clinical course of the patient DVT prophylaxis: heparin GI Prophylaxis: Pepcid PT/OT: Pending Prognosis is guarded
[2019-02-11] MEDS: ALPRAZolam 0.5 MG TAB PO PRN (16:54)
[2019-02-11 16:58] LABS: INR 0.9 (<1.2); Partial Thromboplastin Time 65.7 sec (22.0-30.0); Prothrombin Time 10.1 sec (9.0-12.0)
[2019-02-11 17:02] LABS: Glucose,Whole Blood 182 mg/dL (75-99)
[2019-02-11] MEDS ORDERED: WARFARIN 10 MG TAB PO ONE (18:00)
[2019-02-11] MEDS ORDERED: DOBUTamine DRIP for NUC MED 500 MG in DEXTROSE/WATER 1 250ML.BAG IV ONE (18:17)
--- NOTE | 2019-02-11 18:17 | P.CRDCN ---
History of Present Illness Consult date: 02/11/19 History of present illness: This is a 58-year-old gentleman with history of obesity, COPD, hypertension and diabetes who was admitted to the hospital with a swelling and pain in the right lower extremity. He is visiting [place] from [place]. About a week ago patient had some injury to the leg went swimming. He was diagnosed to have DVT. Patient in addition was complaining of some tightness in the chest and shortness of breath. Patient claims that he has this shortness of breath chronically related to his COPD. Patient had stress test in 2004 and [place] had a cardiac catheterization and was not performed any obstructive disease. At the time. He claims about 3 years ago he had a chemical stress test which was normal. Patient has some wheezing going on at this time and he claims that he hasn't been taking his inhalers. I'm going to ask him to reinstate his inhalers. His troponins have been negative. His EKG showed sinus rhythm with occasional PACs. His symptoms of chest tightness and shortness of breath, Could be related to his COPD. I would recommend that patient have a echocardiogram and a nuclear stress test Review of Systems As per the chart Past Medical History Past Medical History: Heart Failure, COPD, Hypertension, Pneumonia, Sleep Apnea/CPAP/BIPAP Additional Past Medical History / Comment(s): brain injury, acute respiratory failure, bilateral pneumothorax History of Any Multi-Drug Resistant Organisms: None Reported Past Surgical History: Orthopedic Surgery Additional Past Surgical History / Comment(s): left shoulder surgery, x3 left elbow surgeries Past Anesthesia/Blood Transfusion Reactions: No Reported Reaction Past Psychological History: Anxiety, Depression Smoking Status: Never smoker Past Alcohol Use History: Occasional Past Drug Use History: None Reported - Past Family History Mother Family Medical History: Dementia Father Family Medical History: Cancer Medications and Allergies Home Medications Medication Instructions Recorded Confirmed Type Albuterol Inhaler [Ventolin Hfa 1 - 2 puff INHALATION RT-Q6H PRN 02/09/19 02/09/19 History Inhaler] Albuterol Nebulized [Ventolin 2.5 mg INHALATION RT-QID PRN 02/09/19 02/09/19 History Nebulized] Atorvastatin Calcium [Lipitor] 10 mg PO DAILY 02/09/19 02/09/19 History Budesonide/Formoterol Fumarate 2 puff INHALATION RT-DAILY@1400 02/09/19 02/09/19 History [Symbicort 160-4.5 Mcg Inhaler] Gabapentin [Neurontin] 100 mg PO DAILY 02/09/19 02/09/19 History Gabapentin [Neurontin] 400 mg PO HS 02/09/19 02/09/19 History Glimepiride [Amaryl] 4 mg PO BID 02/09/19 02/09/19 History Lisinopril-Hctz 20-25 mg 1 tab PO DAILY 02/09/19 02/09/19 History [Zestoretic 20-25] Tiotropium 18 Mcg/Puff [Spiriva] 1 cap INHALATION RT-DAILY 02/09/19 02/09/19 History clonazePAM 0.5 mg PO DAILY 02/09/19 02/09/19 History metFORMIN HCL 1,000 mg PO BID 02/09/19 02/09/19 History traZODone HCL [Desyrel] 100 mg PO HS 02/09/19 02/09/19 History Allergies Allergy/AdvReac Type Severity Reaction Status Date / Time No Known Allergies Allergy Verified 02/09/19 17:11 Physical Exam Vitals: Vital Signs Temp Pulse Pulse Resp BP BP Pulse Ox 02/11/19 15:49 88 02/11/19 15:38 86 02/11/19 15:00 98.2 F 87 17 122/78 95 02/11/19 11:19 84 02/11/19 11:06 80 02/11/19 07:20 88 02/11/19 07:11 84 02/11/19 07:00 98.4 F 81 16 129/75 98 02/11/19 02:14 98.2 F 75 16 124/77 95 02/10/19 20:03 97.5 F L 87 16 100/60 94 L 02/10/19 19:03 82 02/10/19 18:53 86 Intake and Output 02/11/19 02/11/19 02/11/19 06:59 14:59 22:59 Intake Total 699.803 490.000 490 Balance 699.803 490.000 490 Intake: Intake, IV Titration 219.803 250.000 Amount Heparin Sod,Pork in 0.45% 219.803 250.000 NaCl 25,000 unit In 0.45 % NaCl 1 250ml.bag @ 14. 2835 UNITS/KG/HR 23 mls/ hr IV .[id number] [facility] Rx#: [id number] Oral 480 240 490 Other: Voiding Method Toilet # Voids 1 3 GENERAL EXAM: Patient is alert and oriented and doesn't appear to be in any acute distress HEENT: Normocephalic. Normal reaction of pupils, equal size, normal range of extraocular motion. No erythema or exudates in the throat. NECK: No masses, no nuchal rigidity. CHEST: No chest wall deformity. LUNGS: Expiratory wheezing and rhonchi HEART: S1 and S2 normal with no audible mumurs or gallops. Regular rhythm, femorals equal on both sides.. ABDOMEN: No hepatosplenomegaly, normal bowel sounds, no guarding or rigidity. SKIN: No rashes CENTRAL NERVOUS SYSTEM: No focal deficits. EXTREMITIES: No cyanosis, clubbing or edema. Results 02/11/19 07:09 02/11/19 07:09 Cardiac Enzymes 02/10/19 Range/Units 19:59 Troponin I <0.012 (0.000-0.034) ng/mL Coagulation 02/11/19 02/11/19 Range/Units 07:09 16:23 PT 10.1 (9.0-12.0) sec APTT 138.9 H* 65.7 H (22.0-30.0) sec CBC 02/11/19 Range/Units 07:09 WBC 8.1 (3.8-10.6) k/uL RBC 3.99 L (4.30-5.90) m/uL Hgb 12.8 L (13.0-17.5) gm/dL Hct 38.3 L (39.0-53.0) % Plt Count 234 (150-450) k/uL Comprehensive Metabolic Panel 02/11/19 Range/Units 07:09 Sodium 141 (137-145) mmol/L Potassium 3.7 (3.5-5.1) mmol/L Chloride 105 (98-107) mmol/L Carbon Dioxide 25 (22-30) mmol/L BUN 13 (9-20) mg/dL Creatinine 0.81 (0.66-1.25) mg/dL Glucose 147 H (74-99) mg/dL Calcium 9.1 (8.4-10.2) mg/dL Current Medications Generic Name Dose Route Start Last Admin Trade Name Freq PRN Reason Stop Dose Admin Acetaminophen 650 mg 02/09/19 17:19 Tylenol Tab PO Q6HR PRN Mild Pain or Fever > 100.5 Acetaminophen/Codeine Phosphate 1 each 02/09/19 17:19 02/11/19 14:21 Tylenol #3 PO 1 each Q4HR PRN Administration Moderate Pain Albuterol Sulfate 2.5 mg 02/09/19 20:42 02/11/19 15:37 Ventolin Nebulized INHALATION 2.5 mg RT-QID PRN Administration Shortness Of Breath Alprazolam 0.5 mg 02/11/19 16:39 02/11/19 16:54 Xanax PO 0.5 mg BID PRN Administration Anxiety Atorvastatin Calcium 10 mg 02/10/19 09:00 02/11/19 09:05 Lipitor PO 10 mg DAILY NICKI Administration Budesonide/Formoterol Fumarate 2 puff 02/12/19 14:00 Symbicort 160-4.5 Mcg Inhaler INHALATION RT-DAILY@1400 [facility] Clonazepam 0.5 mg 02/10/19 09:00 02/11/19 09:05 Klonopin PO 0.5 mg DAILY N[facility]I Administration Gabapentin 100 mg 02/10/19 09:00 02/11/19 09:05 Neurontin PO 100 mg DAILY NICKI Administration Gabapentin 400 mg 02/09/19 21:00 02/10/19 21:38 Neurontin PO 400 mg HS [facility] Administration Glimepiride 4 mg 02/09/19 21:00 02/11/19 09:05 Amaryl PO 4 mg BID [facility] Administration Lisinopril/HCTZ 1 each 02/10/19 09:00 02/11/19 09:05 Zestoretic 20-25 PO 1 each DAILY [facility] Administration Heparin Sodium (Porcine) 0 unit 02/09/19 16:10 Heparin IV PER PROTOCOL PRN Low PTT Protocol Heparin Sodium/Sodium Chloride 250 mls @ 23 mls/hr 02/09/19 16:15 02/11/19 12:22 25,000 unit/ Sodium Chloride IV 15 units/kg/hr .[id number] [facility] 24.154 mls/hr Administration Protocol 14.2835 UNITS/KG/HR Insulin Aspart 0 unit 02/09/19 21:00 07/20/19 17:34 Novolog SQ 4 unit ACHS [facility] Administration Protocol Miscellaneous Information 0 each 02/11/19 13:46 Coumadin Per Pharmacy MISCELLANE DIRECTED PRN P & T Morphine Sulfate 4 mg 02/09/19 17:19 02/11/19 16:33 Morphine Sulfate (Inj) IV 4 mg Q4HR PRN Administration Severe Pain Naloxone HCl 0.2 mg 02/09/19 17:19 Narcan IV Q2M PRN Opioid Reversal Nitroglycerin 0.4 mg 02/10/19 11:31 02/10/19 12:12 Nitrostat SUBLINGUAL 0.4 mg Q5M PRN Administration Chest Pain Ondansetron HCl 4 mg 02/09/19 17:19 Zofran IVP Q8HR PRN Nausea And Vomiting Pantoprazole Sodium 40 mg 02/11/19 07:30 02/11/19 07:41 Protonix PO 40 mg AC-BRKFST [facility] Administration Trazodone HCl 100 mg 02/09/19 21:00 02/10/19 21:39 Desyrel PO 100 mg HS [facility] Administration Intake and Output 02/11/19 02/11/19 02/11/19 06:59 14:59 22:59 Intake Total 699.803 490.000 490 Balance 699.803 490.000 490 Intake: Intake, IV Titration 219.803 250.000 Amount Heparin Sod,Pork in 0.45% 219.803 250.000 NaCl 25,000 unit In 0.45 % NaCl 1 250ml.bag @ 14. 2835 UNITS/KG/HR 23 mls/ hr IV .[id number] [facility] Rx#: [id number] Oral 480 240 490 Other: Voiding Method Toilet # Voids 1 3 02/11/19 07:09 02/11/19 07:09 EKG Interpretations (text) Sinus rhythm Assessment and Plan (1) Chest tightness Current Visit: Yes Status: Acute Code(s): R07.89 - OTHER CHEST PAIN SNOMED Code(s): 49471284 (2) Diabetes mellitus Current Visit: Yes Status: Acute Code(s): E11.9 - TYPE 2 DIABETES MELLITUS WITHOUT COMPLICATIONS SNOMED Code(s): 76909458 (3) Hypertension Current Visit: Yes Status: Acute Code(s): I10 - ESSENTIAL (PRIMARY) HYPERTENSION SNOMED Code(s): 04907729 (4) Right leg DVT Current Visit: Yes Status: Acute Code(s): I82.401 - ACUTE EMBOLISM AND THOMBOS UNSP DEEP VEINS OF R LOW EXTREM SNOMED Code(s): 314893697 Plan: His symptoms of chest tightness and shortness of breath. Could be related to COPD. His cardiac enzymes are negative. His EKG did not reveal any acute changes. We will get an echocardiogram and a dobutamine echo with contrast.
[2019-02-11 20:24] LABS: Glucose,Whole Blood 227 mg/dL (75-99)
[2019-02-11] MEDS: GABAPENTIN 400 MG CAP PO SCH (20:47)
[2019-02-11] MEDS: traZODone HCL 100 MG TAB PO SCH (20:47)
[2019-02-12] MEDS: MORPHINE SULFATE 4 MG/ML SYRINGE IV PRN ×4 (03:06→21:13)
[2019-02-12 06:59] LABS: Glucose,Whole Blood 196 mg/dL (75-99)
[2019-02-12 08:05] LABS: Partial Thromboplastin Time 92.9 sec (22.0-30.0); Prothrombin Time 10.6 sec (9.0-12.0)
[2019-02-12] MEDS: ATORVASTATIN 10 MG TAB PO SCH (08:10)
[2019-02-12] MEDS: LISINOPRIL-HCTZ 20-25 MG 1 EACH TAB PO SCH (08:10)
[2019-02-12] MEDS: GABAPENTIN 100 MG CAP PO SCH (08:10)
[2019-02-12] MEDS: PANTOPRAZOLE 40 MG TABLET PO SCH (08:10)
[2019-02-12] MEDS: clonazePAM 0.5 MG TAB PO SCH (08:10)
[2019-02-12] MEDS: INSULIN ASPART (NovoLOG) 100 UNIT/ML VIAL SQ SCH ×4 (08:10→21:14)
[2019-02-12] MEDS: GLIMEPIRIDE 4 MG TAB PO SCH ×2 (08:10→21:14)
[2019-02-12] MEDS: HEPARIN SOD,PORK IN 0.45% NACL 25,000 UNIT in 0.45% NACL 1 250ML.BAG IV SCH ×2 (08:14→21:18)
[2019-02-12] MEDS: Acetaminophen-Codeine 300-30mg TAB PO PRN (08:19)
[2019-02-12 08:32] LABS: Basophils % (A) 0 %; Eosinophils # (A) 0.1 k/uL (0-0.7); Eosinophils % (A) 1 %; HCT 37.9 % (39.0-53.0); HGB 12.9 gm/dL (13.0-17.5); Lymphocytes # (A) 1.7 k/uL (1.0-4.8); Lymphocytes % (A) 23 %; MCHC 34.1 g/dL (31.0-37.0); MCV 96.7 fL (80.0-100.0); Mean Platelet Volume 8.2; Monocytes # (A) 0.4 k/uL (0-1.0); Monocytes % (A) 5 %; Neutrophils % (A) 69 %; Platelet Count 220 k/uL (150-450); RBC 3.92 m/uL (4.30-5.90); RDW 15.2 % (11.5-15.5); WBC 7.2 k/uL (3.8-10.6)
[2019-02-12] MEDS: ALBUTEROL NEBULIZED 2.5 MG/3 ML INHALATION PRN ×3 (08:32→23:09)
[2019-02-12] MEDS: SYMBICORT 160-4.5 MCG INHALER INHALATION SCH (08:33)
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
--- NOTE | 2019-02-12 11:37 | P.PN ---
Subjective Progress Note Date: 02/12/19 This is a 58-year-old gentleman with history of obesity, hypertension and COPD who was admitted to the hospital with the right lower leg pain and swelling. He is diagnosed to have DVT and is on anticoagulation therapy. We're asked to see the patient because of complaints of chest tightness and pain. It seemed to be his symptoms are related to his COPD. Patient has been on his inhalers and nebulizers and is feeling better. His lungs appeared to be clear. Patient had previous cardiac workup that was negative. Last stress test was reported 3 years ago. May consider outpatient Lexiscan stress test to rule out any progression of ischemic heart disease. For now we'll continue current medical therapy. Objective - Vital Signs Vital signs: Vital Signs Temp 98.6 F 02/12/19 07:00 Pulse 88 02/12/19 08:45 Resp 16 02/12/19 07:00 BP 130/79 02/12/19 07:00 Pulse Ox 94 L 02/12/19 07:00 Intake & Output 02/11/19 02/12/19 02/12/19 18:59 06:59 18:59 Intake Total 980.000 241.137 238.722 Output Total 700 Balance 980.000 -458.863 238.722 Intake: Intake, IV Titration 250.000 241.137 238.722 Amount Heparin Sod,Pork in 0.45% 250.000 241.137 238.722 NaCl 25,000 unit In 0.45 % NaCl 1 250ml.bag @ 14. 2835 UNITS/KG/HR 23 mls/ hr IV .[id number] [facility] Rx#: [id number] Oral 730 Output: Urine 700 Other: Voiding Method Toilet Toilet Toilet # Voids 3 2 - Exam GENERAL EXAM: Patient is alert and oriented and doesn't appear to be in any acute distress HEENT: Normocephalic. Normal reaction of pupils, equal size, normal range of extraocular motion. No erythema or exudates in the throat. NECK: No masses, no nuchal rigidity. CHEST: No chest wall deformity. LUNGS: Equal air entry with no crackles or wheeze. HEART: S1 and S2 normal with no audible mumurs or gallops. Regular rhythm, femorals equal on both sides.. ABDOMEN: No hepatosplenomegaly, normal bowel sounds, no guarding or rigidity. SKIN: No rashes CENTRAL NERVOUS SYSTEM: No focal deficits. EXTREMITIES: There is swelling and erythema of the right leg - Labs CBC & Chem 7: 02/12/19 06:35 02/11/19 07:09 Labs: Abnormal Lab Results - Last 24 Hours (Table) 02/11/19 02/11/19 02/11/19 Range/Units 16:23 17:01 20:22 RBC (4.30-5.90) m/uL Hgb (13.0-17.5) gm/dL Hct (39.0-53.0) % APTT 65.7 H (22.0-30.0) sec POC Glucose (mg/dL) 182 H 227 H (75-99) mg/dL 02/12/19 02/12/19 02/12/19 Range/Units 06:35 06:35 06:47 RBC 3.92 L (4.30-5.90) m/uL Hgb 12.9 L (13.0-17.5) gm/dL Hct 37.9 L (39.0-53.0) % APTT 92.9 H (22.0-30.0) sec POC Glucose (mg/dL) 196 H (75-99) mg/dL Assessment and Plan (1) Chest tightness Current Visit: Yes Status: Acute Code(s): R07.89 - OTHER CHEST PAIN SNOMED Code(s): 56137377 (2) Diabetes mellitus Current Visit: Yes Status: Acute Code(s): E11.9 - TYPE 2 DIABETES MELLITUS WITHOUT COMPLICATIONS SNOMED Code(s): 21510167 (3) Hypertension Current Visit: Yes Status: Acute Code(s): I10 - ESSENTIAL (PRIMARY) HYPERTENSION SNOMED Code(s): 24706398 (4) Right leg DVT Current Visit: Yes Status: Acute Code(s): I82.401 - ACUTE EMBOLISM AND THOMBOS UNSP DEEP VEINS OF R LOW EXTREM SNOMED Code(s): 687099558 Plan: Overall, patient is feeling better and less short of breath. Still has significant pain in the leg. Continue current medical therapy. Increase activity as tolerated. Outpatient stress test
[2019-02-12 11:48] LABS: Glucose,Whole Blood 221 mg/dL (75-99)
--- NOTE | 2019-02-12 12:48 | P.PN ---
Subjective This is a pleasant 58 years old male with past medical history of heart failure, COPD, hypertension, sleep apnea on CPAP/BiPAP. Presents with fall, right knee injury and right DVT. Patient has already been started on heparin drip. When I saw the patient today for the first time he was resting in bed comfortable, not in distress. No chest pain or dyspnea. He still have some right leg pain and swelling although it is improving significantly. Also patient has been evaluated by orthopedic team, is a status post right knee aspiration. Patient is mobile with no difficulty discussed with staff 02/12/2019 Patient still on heparin drip for his right DVT. Patient is fully awake with no chest pain or dyspnea however this complaining from pain in his right leg. GEE hoses in a Place. Vitas looks stable. Pharmacy to dose, his attending 5 mg tonight. Is currently on Tylenol No. 3 and morphine, we'll consider Ultram. Patient felt more comfortable with. Discussed with the staff. Cardiology team input is appreciated and they recommended stress test as an outpatient . Orthopedic team following the patient closely and the recommended knee immobilizer went up. 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 HEENT: No recent visual problems or hearing problems. Denied any sore throat. CARDIOVASCULAR: No orthopnea, PND, no palpitations, no syncope. PULMONARY: No shortness of breath, no cough, no hemoptysis. GASTROINTESTINAL: No diarrhea, no nausea, no vomiting, no abdominal pain. Normoactive bowel sounds. NEUROLOGICAL: No headaches, no weakness, no numbness. HEMATOLOGICAL: Denies any bleeding or petechiae. GENITOURINARY: Denies any burning micturition, frequency, or urgency. MUSCULOSKELETAL/RHEUMATOLOGICAL: Denies any joint pain, swelling, or any muscle pain. ENDOCRINE: Denies any polyuria or polydipsia. Active Medications Generic Name Dose Route Start Last Admin Trade Name Freq PRN Reason Stop Dose Admin Acetaminophen 650 mg 02/09/19 17:19 Tylenol Tab PO Q6HR PRN Mild Pain or Fever > 100.5 Acetaminophen/Codeine Phosphate 1 each 02/09/19 17:19 02/12/19 08:19 Tylenol #3 PO 1 each Q4HR PRN Administration Moderate Pain Albuterol Sulfate 2.5 mg 02/09/19 20:42 02/12/19 11:41 Ventolin Nebulized INHALATION 2.5 mg RT-QID PRN Administration Shortness Of Breath Alprazolam 0.5 mg 02/11/19 16:39 02/11/19 16:54 Xanax PO 0.5 mg BID PRN Administration Anxiety Atorvastatin Calcium 10 mg 02/10/19 09:00 02/12/19 08:10 Lipitor PO 10 mg DAILY NICKI Administration Budesonide/Formoterol Fumarate 2 puff 02/12/19 14:00 02/12/19 08:33 Symbicort 160-4.5 Mcg Inhaler INHALATION 2 puff RT-DAILY@1400 NICKI Administration Clonazepam 0.5 mg 02/10/19 09:00 02/12/19 08:10 Klonopin PO 0.5 mg DAILY NICKI Administration Gabapentin 100 mg 02/10/19 09:00 02/12/19 08:10 Neurontin PO 100 mg DAILY NICKI Administration Gabapentin 400 mg 02/09/19 21:00 02/11/19 20:47 Neurontin PO 400 mg HS NICKI Administration Glimepiride 4 mg 02/09/19 21:00 02/12/19 08:10 Amaryl PO 4 mg BID NICKI Administration Lisinopril/HCTZ 1 each 02/10/19 09:00 02/12/19 08:10 Zestoretic 20-25 PO 1 each DAILY NICKI Administration Heparin Sodium (Porcine) 0 unit 02/09/19 16:10 Heparin IV PER PROTOCOL PRN Low PTT Protocol Heparin Sodium/Sodium Chloride 250 mls @ 23 mls/hr 02/09/19 16:15 02/12/19 08:14 25,000 unit/ Sodium Chloride IV 13 units/kg/hr .[id number] [facility] 20.933 mls/hr Administration Protocol 14.2835 UNITS/KG/HR Dobutamine HCl/Dextrose 500 mg 250 mls @ 48.308 mls/hr 02/11/19 18:17 / IV Solution IV 02/11/19 23:27 .Q5H11M ONE Protocol 10 MCG/KG/MIN Insulin Aspart 0 unit 02/09/19 21:00 02/12/19 12:16 Novolog SQ 7 unit ACHS NICKI Administration Protocol Miscellaneous Information 0 each 02/11/19 13:46 Coumadin Per Pharmacy MISCELLANE DIRECTED PRN P & T Morphine Sulfate 4 mg 02/09/19 17:19 02/12/19 10:32 Morphine Sulfate (Inj) IV 4 mg Q4HR PRN Administration Severe Pain Naloxone HCl 0.2 mg 02/09/19 17:19 Narcan IV Q2M PRN Opioid Reversal Nitroglycerin 0.4 mg 02/10/19 11:31 02/10/19 12:12 Nitrostat SUBLINGUAL 0.4 mg Q5M PRN Administration Chest Pain Ondansetron HCl 4 mg 02/09/19 17:19 Zofran IVP Q8HR PRN Nausea And Vomiting Pantoprazole Sodium 40 mg 02/11/19 07:30 02/12/19 08:10 Protonix PO 40 mg [id number] NICKI Administration Trazodone HCl 100 mg 02/09/19 21:00 02/11/19 20:47 Desyrel PO 100 mg HS NICKI Administration Warfarin Sodium 5 mg 02/12/19 18:00 Coumadin PO 02/12/19 18:01 ONCE@1800 ONE Objective - Vital Signs Vital signs: Vital Signs Temp 98.6 F 02/12/19 07:00 Pulse 84 02/12/19 11:53 Resp 16 02/12/19 07:00 BP 130/79 02/12/19 07:00 Pulse Ox 94 L 02/12/19 07:00 Intake & Output 02/11/19 02/12/19 02/12/19 18:59 06:59 18:59 Intake Total 980.000 241.137 418.722 Output Total 700 Balance 980.000 -458.863 418.722 Intake: Intake, IV Titration 250.000 241.137 238.722 Amount Heparin Sod,Pork in 0.45% 250.000 241.137 238.722 NaCl 25,000 unit In 0.45 % NaCl 1 250ml.bag @ 14. 2835 UNITS/KG/HR 23 mls/ hr IV .[id number] [facility] Rx#: [id number] Oral 730 180 Output: Urine 700 Other: Voiding Method Toilet Toilet Toilet # Voids 3 2 - Exam GENERAL: The patient is alert and oriented x3, not in any acute distress. Well developed, well nourished. HEENT: Pupils are round and equally reacting to light. EOMI. No scleral icterus. No conjunctival pallor. Normocephalic, atraumatic. No pharyngeal erythema. No thyromegaly. CARDIOVASCULAR: S1 and S2 present. No murmurs, rubs, or gallops. PULMONARY: Chest is clear to auscultation, no wheezing or crackles. ABDOMEN: Soft, nontender, nondistended, normoactive bowel sounds. No palpable organomegaly. MUSCULOSKELETAL: No joint swelling or deformity. -EXTREMITIES: No cyanosis, clubbing, or pedal edema. right leg swelling, or nontender. No right knee swelling NEUROLOGICAL: Gross neurological examination did not reveal any focal deficits. SKIN: No rashes. - Labs CBC & Chem 7: 02/12/19 06:35 02/11/19 07:09 Labs: Abnormal Lab Results - Last 24 Hours (Table) 02/11/19 02/11/19 02/11/19 Range/Units 16:23 17:01 20:22 RBC (4.30-5.90) m/uL Hgb (13.0-17.5) gm/dL Hct (39.0-53.0) % APTT 65.7 H (22.0-30.0) sec POC Glucose (mg/dL) 182 H 227 H (75-99) mg/dL 02/12/19 02/12/19 02/12/19 Range/Units 06:35 06:35 06:47 RBC 3.92 L (4.30-5.90) m/uL Hgb 12.9 L (13.0-17.5) gm/dL Hct 37.9 L (39.0-53.0) % APTT 92.9 H (22.0-30.0) sec POC Glucose (mg/dL) 196 H (75-99) mg/dL 02/12/19 Range/Units 11:33 RBC (4.30-5.90) m/uL Hgb (13.0-17.5) gm/dL Hct (39.0-53.0) % APTT (22.0-30.0) sec POC Glucose (mg/dL) 221 H (75-99) mg/dL Assessment and Plan Assessment: - Right lower extremity DVT - Acute tear of the medial collateral ligament of the right knee - Right right knee pain, secondary to above - Obesity - MEKA - Hypertension - Diabetes Plan: This is a pleasant 58 years old male who presents with acute right DVT. Patient has a primary care doctor [place] where he plans to follow up after discharge. However patient remains on heparin drip while the Coumadin was started. Patient states that he has no medical insurance therefore oral anticoagulants will be limited to Coumadin for financial reasons. Explained to the patient the importance of coumadine, the concept of INR and then need to monitor her INR closely and he verbalized understanding and acceptance. We'll start him on Coumadin 10 mg on follow-up his INR. Orthopedic and vascular surgery team are following the patient closely. No surgical intervention needed. Labs and medication were reviewed.. Continue same treatment. Continue with symptomatic treatment. Resume home medication. Monitor lytes and vitals. DVT and GI prophylaxis. Further recommendations of the clinical course of the p atient DVT prophylaxis: heparin GI Prophylaxis: Pepcid PT/OT: Pending Prognosis is guarded
[2019-02-12 17:02] LABS: Glucose,Whole Blood 158 mg/dL (75-99)
[2019-02-12] MEDS: ALPRAZolam 0.5 MG TAB PO PRN (17:04)
[2019-02-12] MEDS ORDERED: WARFARIN 5 MG TAB PO ONE (18:00)
[2019-02-12] MEDS ORDERED: WARFARIN 2 MG TAB PO ONE (18:30)
[2019-02-12 21:05] LABS: Glucose,Whole Blood 195 mg/dL (75-99)
[2019-02-12] MEDS: traZODone HCL 100 MG TAB PO SCH (21:14)
[2019-02-12] MEDS: GABAPENTIN 400 MG CAP PO SCH (21:14)
[2019-02-13] MEDS: MORPHINE SULFATE 4 MG/ML SYRINGE IV PRN ×5 (01:27→22:36)
[2019-02-13] MEDS: ALBUTEROL NEBULIZED 2.5 MG/3 ML INHALATION PRN ×3 (03:15→12:09)
[2019-02-13 07:19] LABS: Glucose,Whole Blood 174 mg/dL (75-99)
[2019-02-13] MEDS: PANTOPRAZOLE 40 MG TABLET PO SCH (07:34)
[2019-02-13] MEDS: clonazePAM 0.5 MG TAB PO SCH (07:34)
[2019-02-13] MEDS: GABAPENTIN 100 MG CAP PO SCH (07:34)
[2019-02-13] MEDS: ATORVASTATIN 10 MG TAB PO SCH (07:34)
[2019-02-13] MEDS: GLIMEPIRIDE 4 MG TAB PO SCH ×2 (07:35→20:59)
[2019-02-13] MEDS: LISINOPRIL-HCTZ 20-25 MG 1 EACH TAB PO SCH (07:35)
[2019-02-13] MEDS: INSULIN ASPART (NovoLOG) 100 UNIT/ML VIAL SQ SCH ×4 (07:39→20:17)
[2019-02-13 08:24] LABS: INR 1.1 (<1.2); Prothrombin Time 11.3 sec (9.0-12.0)
[2019-02-13] MEDS: SYMBICORT 160-4.5 MCG INHALER INHALATION SCH (08:41)
[2019-02-13 08:45] LABS: Basophils % (A) 0 %; Eosinophils # (A) 0.2 k/uL (0-0.7); Eosinophils % (A) 2 %; HCT 38.1 % (39.0-53.0); HGB 12.9 gm/dL (13.0-17.5); Lymphocytes # (A) 1.6 k/uL (1.0-4.8); Lymphocytes % (A) 22 %; MCH 32.7 pg (25.0-35.0); MCHC 33.9 g/dL (31.0-37.0); MCV 96.6 fL (80.0-100.0); Mean Platelet Volume 7.5; Monocytes # (A) 0.4 k/uL (0-1.0); Monocytes % (A) 5 %; Neutrophils % (A) 69 %; Platelet Count 238 k/uL (150-450); RBC 3.94 m/uL (4.30-5.90); RDW 14.6 % (11.5-15.5); WBC 7.4 k/uL (3.8-10.6)
[2019-02-13] MEDS: ALPRAZolam 0.5 MG TAB PO PRN (10:54)
[2019-02-13] MEDS: Acetaminophen-Codeine 300-30mg TAB PO PRN ×2 (10:54→20:18)
--- NOTE | 2019-02-13 11:12 | P.PN ---
Subjective Progress Note Date: 02/13/19 Pt s/e. No complaints. Did take off catherine hose d/t discomfort. Overall feeling better. No CP/SOB. NAD No resp distress Abd Obese, soft BLE edema. R>L improved ecchymosis RLE trauma RLE pop dvt Continue hep bridging to coumadin d/t non covered NOAC. No further plans for vascular intervention. Will sign off at this time, pt will need f/u in ~1 week for repeat U/S. Pt seemingly understands. Please call with questions. Objective - Vital Signs Vital signs: Vital Signs Temp 98.2 F 02/13/19 07:43 Pulse 80 02/13/19 09:00 Resp 15 02/13/19 07:43 BP 126/75 02/13/19 07:43 Pulse Ox 98 02/13/19 07:43 Intake & Output 02/12/19 02/13/19 02/13/19 18:59 06:59 18:59 Intake Total 598.722 250 320 Balance 598.722 250 320 Intake: Intake, IV Titration 238.722 250 Amount Heparin Sod,Pork in 0.45% 238.722 250 NaCl 25,000 unit In 0.45 % NaCl 1 250ml.bag @ 14. 2835 UNITS/KG/HR 23 mls/ hr IV .[id number] [facility] Rx#: [id number] Oral 360 320 Other: Voiding Method Toilet Toilet Toilet # Voids 1 3 - Labs CBC & Chem 7: 02/13/19 07:18 02/11/19 07:09 Labs: Abnormal Lab Results - Last 24 Hours (Table) 02/12/19 02/12/19 02/12/19 Range/Units 11:33 14:02 16:50 RBC (4.30-5.90) m/uL Hgb (13.0-17.5) gm/dL Hct (39.0-53.0) % APTT 67.0 H (22.0-30.0) sec POC Glucose (mg/dL) 221 H 158 H (75-99) mg/dL 02/12/19 02/13/19 02/13/19 Range/Units 20:54 07:07 07:18 RBC 3.94 L (4.30-5.90) m/uL Hgb 12.9 L (13.0-17.5) gm/dL Hct 38.1 L (39.0-53.0) % APTT (22.0-30.0) sec POC Glucose (mg/dL) 195 H 174 H (75-99) mg/dL 02/13/19 Range/Units 08:50 RBC (4.30-5.90) m/uL Hgb (13.0-17.5) gm/dL Hct (39.0-53.0) % APTT 67.1 H (22.0-30.0) sec POC Glucose (mg/dL) (75-99) mg/dL
--- NOTE | 2019-02-13 11:22 | ECHOF ---
Referral Reason:Chest pain and cardiomyopathy MEASUREMENTS -------- HEIGHT: 180.3 cm WEIGHT: 161.0 kg BP: 124/77 RVIDd: 4.1 cm (< 3.3) IVSd: 1.7 cm (0.6 - 1.1) LVIDd: 4.0 cm (3.9 - 5.3) LVPWd: 2.1 cm (0.6 - 1.1) IVSs: 2.1 cm LVIDs: 2.0 cm LVPWs: 2.3 cm LAESV Index (A-L): 23.41 ml/m Ao Diam: 2.3 cm (2.0 - 3.7) AV Cusp: 1.8 cm (1.5 - 2.6) LA Diam: 3.9 cm (2.7 - 3.8) MV E Crescencio: 1.16 m/s MV DecT: 248 ms MV A Crescencio: 1.01 m/s MV E/A Ratio: 1.16 RAP: 5.00 mmHg RVSP: 29.40 mmHg FINDINGS -------- Sinus rhythm. This was a technically difficult study with suboptimal views. The left ventricular size is normal. There is moderate concentric left ventricular hypertrophy. O verall left ventricular systolic function is normal with, an EF between 55 - 60 %. Mitral Doppler i nflow pattern suggests diastolic filling abnormality 19.71. The right ventricle is moderately enlarged. Normal LA size by volume 22+/-6 ml/m2. The right atrium was not well visualized. 5.0mg of Lumason was utilized for enhancement of images Interatrial and interventricular septum intact. The aortic valve was not well visualized. There is no evidence of aortic regurgitation. There is no evidence of aortic stenosis. No mitral regurgitation. Mild tricuspid regurgitation present. There is no evidence of pulmonary hypertension. The right v entricular systolic pressure, as measured by Doppler, is 29.40mmHg. The pulmonic valve was not well visualized. There is no pulmonic regurgitation present. The aortic root size is normal. The inferior vena cava is mildly dilated. There is no pericardial effusion. CONCLUSIONS -------- 1. Sinus rhythm. 2. This was a technically difficult study with suboptimal views. 3. The left ventricular size is normal. 4. There is moderate concentric left ventricular hypertrophy. 5. Overall left ventricular systolic function is normal with, an EF between 55 - 60 %. 6. Mitral Doppler inflow pattern suggest diastolic filling abnormality 19.71. 7. Normal LA size by volume 22+/-6 ml/m2. 8. The right atrium was not well visualized. 9. 5.0mg of Lumason was utilized for enhancement of images 10. Interatrial and interventricular septum intact. 11. The aortic valve was not well visualized. 12. There is no evidence of aortic regurgitation. 13. There is no evidence of aortic stenosis. 14. No mitral regurgitation. 15. Mild tricuspid regurgitation present. 16. There is no evidence of pulmonary hypertension. 17. The right ventricular systolic pressure, as measured by Doppler, is 29.40mmHg. 18. The pulmonic valve was not well visualized. 19. There is no pulmonic regurgitation present. 20. The aortic root size is normal. 21. The inferior vena cava is mildly dilated. 22. There is no pericardial effusion. FINANCIAL SERVICES PROFESSIONAL: Thelma Umanzor RDCS
[2019-02-13] MEDS: HEPARIN SOD,PORK IN 0.45% NACL 25,000 UNIT in 0.45% NACL 1 250ML.BAG IV SCH ×2 (11:29→23:57)
[2019-02-13 11:56] LABS: Glucose,Whole Blood 188 mg/dL (75-99)
[2019-02-13] MEDS ORDERED: methylPREDNISolone ACETATE 40 MG/ML 1 ML VIAL INTRAARTIC STA (12:01)
[2019-02-13] MEDS ORDERED: LIDOCAINE 2% INJ 20 MG/ML (20 ML MDV) SQ ONE (12:15)
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
--- NOTE | 2019-02-13 15:38 | P.PN ---
Subjective This is a pleasant 58 years old male with past medical history of heart failure, COPD, hypertension, sleep apnea on CPAP/BiPAP. Presents with fall, right knee injury and right DVT. Patient has already been started on heparin drip. When I saw the patient today for the first time he was resting in bed comfortable, not in distress. No chest pain or dyspnea. He still have some right leg pain and swelling although it is improving significantly. Also patient has been evaluated by orthopedic team, is a status post right knee aspiration. Patient is mobile with no difficulty discussed with staff 02/12/2019 Patient still on heparin drip for his right DVT. Patient is fully awake with no chest pain or dyspnea however this complaining from pain in his right leg. GEE hoses in a Place. Vitthais looks stable. Pharmacy to dose, his attending 5 mg tonight. Is currently on Tylenol No. 3 and morphine, we'll consider Ultram. Patient felt more comfortable with. Discussed with the staff. Cardiology team input is appreciated and they recommended stress test as an outpatient . Orthopedic team following the patient closely and the recommended knee immobilizer went up. structural ironworker consulted 02/13/2019 Patient is fully awake and oriented. He remains on anticoagulation with warfarin and heparin bridging his INR today is 1.1, he received milligrams of Coumadin yesterday. We'll give him another 10 mg today. Vascular surgery recommended to continue with anticoagulation. And follow-up with vascular surgery in one week. Patient was complaining from pain in his right leg over yesterday and today. We called vascular and orthopedic team for follow-up today. Vascular surgery they signed off and the recommended patient to follow- up with them in 1 week. While orthopedic team dated aspiration of the right knee. Objective - Vital Signs Vital signs: Vital Signs Temp 98.9 F 02/13/19 14:12 Pulse 89 02/13/19 14:12 Resp 16 02/13/19 14:12 BP 114/69 02/13/19 14:12 Pulse Ox 95 02/13/19 14:12 Intake & Output 02/12/19 02/13/19 02/13/19 18:59 06:59 18:59 Intake Total 598.722 250 750 Balance 598.722 250 750 Intake: Intake, IV Titration 238.722 250 250 Amount Heparin Sod,Pork in 0.45% 238.722 250 250 NaCl 25,000 unit In 0.45 % NaCl 1 250ml.bag @ 14. 2835 UNITS/KG/HR 23 mls/ hr IV .[id number] [facility] Rx#: [id number] Oral 360 500 Other: Voiding Method Toilet Toilet Toilet # Voids 1 3 - Exam GENERAL: The patient is alert and oriented x3, not in any acute distress. Well developed, well nourished. HEENT: Pupils are round and equally reacting to light. EOMI. No scleral icterus. No conjunctival pallor. Normocephalic, atraumatic. No pharyngeal erythema. No thyromegaly. CARDIOVASCULAR: S1 and S2 present. No murmurs, rubs, or gallops. PULMONARY: Chest is clear to auscultation, no wheezing or crackles. ABDOMEN: Soft, nontender, nondistended, normoactive bowel sounds. No palpable organomegaly. MUSCULOSKELETAL: No joint swelling or deformity. -EXTREMITIES: No cyanosis, clubbing, or pedal edema. right leg swelling, or nontender. No right knee swelling NEUROLOGICAL: Gross neurological examination did not reveal any focal deficits. SKIN: No rashes. - Labs CBC & Chem 7: 02/13/19 07:18 02/11/19 07:09 Labs: Abnormal Lab Results - Last 24 Hours (Table) 02/12/19 02/12/19 02/13/19 Range/Units 16:50 20:54 07:07 RBC (4.30-5.90) m/uL Hgb (13.0-17.5) gm/dL Hct (39.0-53.0) % APTT (22.0-30.0) sec POC Glucose (mg/dL) 158 H 195 H 174 H (75-99) mg/dL 02/13/19 02/13/19 02/13/19 Range/Units 07:18 08:50 11:45 RBC 3.94 L (4.30-5.90) m/uL Hgb 12.9 L (13.0-17.5) gm/dL Hct 38.1 L (39.0-53.0) % APTT 67.1 H (22.0-30.0) sec POC Glucose (mg/dL) 188 H (75-99) mg/dL Assessment and Plan Assessment: - Right lower extremity DVT - Acute tear of the medial collateral ligament of the right knee - Right right knee pain, secondary to above - Obesity - MEKA - Hypertension - Diabetes Plan: This is a pleasant 58 years old male who presents with acute right DVT. Patient has a primary care doctor [place] where he plans to follow up after discharge. However patient remains on heparin drip while the Coumadin was started. Patient states that he has no medical insurance therefore oral anticoagulants will be limited to Coumadin for financial reasons. Explained to the patient the importance of coumadine, the concept of INR and then need to monitor her INR closely and he verbalized understanding and acceptance. We'll start him on Coumadin 10 mg on follow-up his INR. Orthopedic and vascular surgery team are following the patient closely. No surgical intervention needed . Labs and medication were reviewed.. Continue same treatment. Continue with symptomatic treatment. Resume home medication. Monitor lytes and vitals. DVT and GI prophylaxis. Further recommendations of the clinical course of the patient DVT prophylaxis: heparin GI Prophylaxis: Pepcid PT/OT: Pending Prognosis is guarded
[2019-02-13 16:48] LABS: Glucose,Whole Blood 257 mg/dL (75-99)
[2019-02-13] MEDS ORDERED: WARFARIN 10 MG TAB PO ONE ×2 (18:00)
[2019-02-13] MEDS: traZODone HCL 100 MG TAB PO SCH (20:18)
[2019-02-13] MEDS: GABAPENTIN 400 MG CAP PO SCH (20:18)
[2019-02-13 20:21] LABS: Glucose,Whole Blood 261 mg/dL (75-99)
[2019-02-14] MEDS: HEPARIN SOD,PORK IN 0.45% NACL 25,000 UNIT in 0.45% NACL 1 250ML.BAG IV SCH ×3 (05:38→23:49)
[2019-02-14 07:04] LABS: Glucose,Whole Blood 185 mg/dL (75-99)
[2019-02-14] MEDS: SYMBICORT 160-4.5 MCG INHALER INHALATION SCH (07:27)
[2019-02-14] MEDS: ALBUTEROL NEBULIZED 2.5 MG/3 ML INHALATION PRN (07:27)
[2019-02-14] MEDS: clonazePAM 0.5 MG TAB PO SCH (07:36)
[2019-02-14] MEDS: PANTOPRAZOLE 40 MG TABLET PO SCH (07:36)
[2019-02-14] MEDS: LISINOPRIL-HCTZ 20-25 MG 1 EACH TAB PO SCH (07:36)
[2019-02-14] MEDS: ATORVASTATIN 10 MG TAB PO SCH (07:36)
[2019-02-14] MEDS: GABAPENTIN 100 MG CAP PO SCH (07:37)
[2019-02-14] MEDS: INSULIN ASPART (NovoLOG) 100 UNIT/ML VIAL SQ SCH ×4 (07:37→20:54)
[2019-02-14] MEDS: GLIMEPIRIDE 4 MG TAB PO SCH ×2 (07:37→20:53)
[2019-02-14] MEDS: MORPHINE SULFATE 4 MG/ML SYRINGE IV PRN ×4 (07:39→22:17)
[2019-02-14 07:42] LABS: Partial Thromboplastin Time 50.6 sec (22.0-30.0)
[2019-02-14 07:45] LABS: African American GFR (CKD) >90 (>60 ml/min/1.73 sqM); Anion Gap 11 mmol/L; Blood Urea Nitrogen 15 mg/dL (9-20); Calcium 9.1 mg/dL (8.4-10.2); Carbon Dioxide 24 mmol/L (22-30); Chloride 104 mmol/L (98-107); Glucose 183 mg/dL (74-99); Potassium 4.3 mmol/L (3.5-5.1); Sodium 139 mmol/L (137-145)
[2019-02-14 07:59] LABS: Basophils % (A) 0 %; Eosinophils # (A) 0.1 k/uL (0-0.7); Eosinophils % (A) 1 %; HGB 13.7 gm/dL (13.0-17.5); Lymphocytes # (A) 1.2 k/uL (1.0-4.8); Lymphocytes % (A) 13 %; MCH 32.5 pg (25.0-35.0); MCHC 33.4 g/dL (31.0-37.0); MCV 97.3 fL (80.0-100.0); Mean Platelet Volume 7.6; Monocytes # (A) 0.4 k/uL (0-1.0); Monocytes % (A) 4 %; Neutrophils # (A) 7.4 k/uL (1.3-7.7); Neutrophils % (A) 79 %; Platelet Count 291 k/uL (150-450); RBC 4.22 m/uL (4.30-5.90); RDW 14.6 % (11.5-15.5); WBC 9.3 k/uL (3.8-10.6)
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
[2019-02-14] MEDS: Acetaminophen-Codeine 300-30mg TAB PO PRN ×2 (10:25→21:16)
--- NOTE | 2019-02-14 10:48 | P.PN ---
Subjective This is a pleasant 58 years old male with past medical history of heart failure, COPD, hypertension, sleep apnea on CPAP/BiPAP. Presents with fall, right knee injury and right DVT. Patient has already been started on heparin drip. When I saw the patient today for the first time he was resting in bed comfortable, not in distress. No chest pain or dyspnea. He still have some right leg pain and swelling although it is improving significantly. Also patient has been evaluated by orthopedic team, is a status post right knee aspiration. Patient is mobile with no difficulty discussed with staff 02/12/2019 Patient still on heparin drip for his right DVT. Patient is fully awake with no chest pain or dyspnea however this complaining from pain in his right leg. GEE hoses in a Place. Vitthais looks stable. Pharmacy to dose, his attending 5 mg tonight. Is currently on Tylenol No. 3 and morphine, we'll consider Ultram. Patient felt more comfortable with. Discussed with the staff. Cardiology team input is appreciated and they recommended stress test as an outpatient . Orthopedic team following the patient closely and the recommended knee immobilizer went up. metal control worker consulted 02/13/2019 Patient is fully awake and oriented. He remains on anticoagulation with warfarin and heparin bridging his INR today is 1.1, he received milligrams of Coumadin yesterday. We'll give him another 10 mg today. Vascular surgery recommended to continue with anticoagulation. And follow-up with vascular surgery in one week. Patient was complaining from pain in his right leg over yesterday and today. We called vascular and orthopedic team for follow-up today. Vascular surgery they signed off and the recommended patient to follow- up with them in 1 week. While orthopedic team dated aspiration of the right knee. 02/14/2019 Patient is doing well today with less pain in his right knee after second aspiration of his knee. The aspirate was bloody as expected as patient is on heparin drip. However we will continue with anticoagulation as the benefits more than the risks. Patient got his knee immobilizer today and is in place. Patient is hemodynamically stable with no fever. Labs from today were unremarkable with stable hemoglobin. Sugar is controlled. Orthopedic and vascular surgery input is appreciated. His INR still 1.0 after 3 days of 10, 7, 10 mg of Coumadin. Abrasive Mixer Helper recommended stress testing outpatient. Patient is aware of this recommendation. Also I discussed with the patient the need to follow-up with vascular surgery and orthopedic as an outpatient and if he has going to have recurrent bleeding into the knee joint he might need MRI. Patient verbalized understanding and acceptance and stated he will try to stay for 1 week in [place] after being discharged from the hospital. Objective - Vital Signs Vital signs: Vital Signs Temp 98.0 F 02/14/19 07:12 Pulse 80 02/14/19 07:38 Resp 14 02/14/19 07:12 BP 151/83 02/14/19 07:12 Pulse Ox 95 02/14/19 07:12 Intake & Output 02/13/19 02/14/19 02/14/19 18:59 06:59 18:59 Intake Total 930 668.62 300 Output Total 350 Balance 930 318.62 300 Intake: Intake, IV Titration 250 368.62 Amount Heparin Sod,Pork in 0.45% 250 368.62 NaCl 25,000 unit In 0.45 % NaCl 1 250ml.bag @ 14. 2835 UNITS/KG/HR 23 mls/ hr IV .[id number] [facility] Rx#: [id number] Oral 680 300 300 Output: Urine 350 Other: Voiding Method Toilet Toilet # Voids 1 - Exam GENERAL: The patient is alert and oriented x3, not in any acute distress. Well developed, well nourished. HEENT: Pupils are round and equally reacting to light. EOMI. No scleral icterus. No conjunctival pallor. Normocephalic, atraumatic. No pharyngeal erythema. No thyromegaly. CARDIOVASCULAR: S1 and S2 present. No murmurs, rubs, or gallops. PULMONARY: Chest is clear to auscultation, no wheezing or crackles. ABDOMEN: Soft, nontender, nondistended, normoactive bowel sounds. No palpable organomegaly. MUSCULOSKELETAL: No joint swelling or deformity. -EXTREMITIES: No cyanosis, clubbing, or pedal edema. right leg swelling, or nontender. No right knee swelling. Right knee immobilizer is in place NEUROLOGICAL: Gross neurological examination did not reveal any focal deficits. SKIN: No rashes. - Labs CBC & Chem 7: 02/14/19 06:56 02/14/19 06:56 Labs: Abnormal Lab Results - Last 24 Hours (Table) 02/13/19 02/13/19 02/13/19 Range/Units 11:45 16:36 20:09 RBC (4.30-5.90) m/uL APTT (22.0-30.0) sec Glucose (74-99) mg/dL POC Glucose (mg/dL) 188 H 257 H 261 H (75-99) mg/dL 02/14/19 02/14/19 02/14/19 Range/Units 06:52 06:56 06:56 RBC 4.22 L (4.30-5.90) m/uL APTT 50.6 H (22.0-30.0) sec Glucose (74-99) mg/dL POC Glucose (mg/dL) 185 H (75-99) mg/dL 02/14/19 Range/Units 06:56 RBC (4.30-5.90) m/uL APTT (22.0-30.0) sec Glucose 183 H (74-99) mg/dL POC Glucose (mg/dL) (75-99) mg/dL Assessment and Plan Assessment: - Right lower extremity DVT. On anticoagulation - Acute tear of the medial collateral ligament of the right knee - Right knee swelling secondary to his trauma. Status post bloody knee aspirate x 2 - Right knee pain, secondary to above - Obesity - MEKA - Hypertension - Diabetes Plan: This is a pleasant 58 years old male who presents with acute right DVT. Patient has a primary care doctor [place] where he plans to follow up after discharge. However patient remains on heparin drip while the Coumadin was started, continue to monitor INR goal INR is 2-3. Patient states that he has no medical insurance therefore oral anticoagulants will be limited to Coumadin for financial reasons. Right knee immobilizer is in place. Orthopedic and vascular surgery team are following the patient patient will need follow-up with orthopedic and vascular surgery after discharge and patient agrees. Continue with symptomatic treatment and pain control. Further recommendation as per medical progress DVT prophylaxis: heparin GI Prophylaxis: Pepcid PT/OT: Pending Prognosis is guarded
[2019-02-14 11:53] LABS: Glucose,Whole Blood 214 mg/dL (75-99)
[2019-02-14 17:00] LABS: Glucose,Whole Blood 244 mg/dL (75-99)
[2019-02-14] MEDS ORDERED: WARFARIN 5 MG TAB PO ONE (18:00)
[2019-02-14] MEDS ORDERED: WARFARIN 10 MG TAB PO ONE (18:00)
[2019-02-14 20:41] LABS: Glucose,Whole Blood 168 mg/dL (75-99)
[2019-02-14] MEDS: traZODone HCL 100 MG TAB PO SCH (20:53)
[2019-02-14] MEDS: GABAPENTIN 400 MG CAP PO SCH (20:53)
[2019-02-14] MEDS: ALPRAZolam 0.5 MG TAB PO PRN (23:45)
[2019-02-15] MEDS: MORPHINE SULFATE 4 MG/ML SYRINGE IV PRN ×2 (04:52→11:55)
[2019-02-15 06:58] LABS: Glucose,Whole Blood 140 mg/dL (75-99)
[2019-02-15] MEDS: ATORVASTATIN 10 MG TAB PO SCH (07:17)
[2019-02-15] MEDS: Acetaminophen-Codeine 300-30mg TAB PO PRN (07:17)
[2019-02-15] MEDS: GABAPENTIN 100 MG CAP PO SCH (07:17)
[2019-02-15] MEDS: LISINOPRIL-HCTZ 20-25 MG 1 EACH TAB PO SCH (07:17)
[2019-02-15] MEDS: clonazePAM 0.5 MG TAB PO SCH (07:17)
[2019-02-15] MEDS: PANTOPRAZOLE 40 MG TABLET PO SCH (07:17)
[2019-02-15] MEDS: GLIMEPIRIDE 4 MG TAB PO SCH ×2 (07:17→20:54)
[2019-02-15] MEDS: INSULIN ASPART (NovoLOG) 100 UNIT/ML VIAL SQ SCH ×4 (07:20→20:40)
[2019-02-15 08:45] LABS: Basophils % (A) 0 %; Eosinophils # (A) 0.1 k/uL (0-0.7); Eosinophils % (A) 2 %; HCT 39.4 % (39.0-53.0); HGB 13.5 gm/dL (13.0-17.5); Lymphocytes # (A) 1.5 k/uL (1.0-4.8); Lymphocytes % (A) 22 %; MCH 33.6 pg (25.0-35.0); MCHC 34.3 g/dL (31.0-37.0); MCV 98.1 fL (80.0-100.0); Monocytes # (A) 0.4 k/uL (0-1.0); Monocytes % (A) 6 %; Neutrophils # (A) 4.8 k/uL (1.3-7.7); Neutrophils % (A) 69 %; Platelet Count 228 k/uL (150-450); RBC 4.02 m/uL (4.30-5.90); RDW 15.4 % (11.5-15.5)
[2019-02-15 09:09] LABS: INR 1.5 (<1.2)
--- NOTE | 2019-02-15 09:33 | P.PN ---
Subjective This is a pleasant 58 years old male with past medical history of heart failure, COPD, hypertension, sleep apnea on CPAP/BiPAP. Presents with fall, right knee injury and right DVT. Patient has already been started on heparin drip. When I saw the patient today for the first time he was resting in bed comfortable, not in distress. No chest pain or dyspnea. He still have some right leg pain and swelling although it is improving significantly. Also patient has been evaluated by orthopedic team, is a status post right knee aspiration. Patient is mobile with no difficulty discussed with staff 02/12/2019 Patient still on heparin drip for his right DVT. Patient is fully awake with no chest pain or dyspnea however this complaining from pain in his right leg. GEE hoses in a Place. Vitthais looks stable. Pharmacy to dose, his attending 5 mg tonight. Is currently on Tylenol No. 3 and morphine, we'll consider Ultram. Patient felt more comfortable with. Discussed with the staff. Cardiology team input is appreciated and they recommended stress test as an outpatient . Orthopedic team following the patient closely and the recommended knee immobilizer went up. fountain worker consulted 02/13/2019 Patient is fully awake and oriented. He remains on anticoagulation with warfarin and heparin bridging his INR today is 1.1, he received milligrams of Coumadin yesterday. We'll give him another 10 mg today. Vascular surgery recommended to continue with anticoagulation. And follow-up with vascular surgery in one week. Patient was complaining from pain in his right leg over yesterday and today. We called vascular and orthopedic team for follow-up today. Vascular surgery they signed off and the recommended patient to follow- up with them in 1 week. While orthopedic team dated aspiration of the right knee. 02/14/2019 Patient is doing well today with less pain in his right knee after second aspiration of his knee. The aspirate was bloody as expected as patient is on heparin drip. However we will continue with anticoagulation as the benefits more than the risks. Patient got his knee immobilizer today and is in place. Patient is hemodynamically stable with no fever. Labs from today were unremarkable with stable hemoglobin. Sugar is controlled. Orthopedic and vascular surgery input is appreciated. His INR still 1.0 after 3 days of 10, 7, 10 mg of Coumadin. Sql Server Bi Developer recommended stress testing outpatient. Patient is aware of this recommendation. Also I discussed with the patient the need to follow-up with vascular surgery and orthopedic as an outpatient and if he has going to have recurrent bleeding into the knee joint he might need MRI. Patient verbalized understanding and acceptance and stated he will try to stay for 1 week in [place] after being discharged from the hospital. 02/15/2019 Patient is awake, no chest pain or dyspnea. He is having right knee swelling for 3 time while he is on heparin drip. Patient has to be on anticoagulation because of his DVT and risk of pulmonary embolism and . Orthopedic team R following the case and there were. Patient might need another aspiration of his right knee. Patient is hemodynamically stable. His INR is today is 1.5 after 20 mg of Coumadin yesterday. We're going to give him coumadine 17.5 mg daily. His sugar is controlled and his hemoglobin is stable. 02/16/2019 Patient is doing well, no new complaints. Yesterday she worked with physical therapy and that went well as per patient. Still patient nothing by mouth. Surgical team applying to take the drains today as per patient. However patient remains on parenteral nutrition and fluids. She is afebrile and hemodynamically stable. Labs are reviewed with no significant change. Sugar is controlled Objective - Vital Signs Vital signs: Vital Signs Temp 98.1 F 02/15/19 06:55 Pulse 72 02/15/19 06:55 Resp 16 02/15/19 06:55 BP 142/84 02/15/19 06:55 Pulse Ox 97 02/15/19 06:55 Intake & Output 02/14/19 02/15/19 02/15/19 18:59 06:59 18:59 Intake Total 1218.969 490 Balance 1218.969 490 Intake: Intake, IV Titration 118.969 250 Amount Heparin Sod,Pork in 0.45% 118.969 250 NaCl 25,000 unit In 0.45 % NaCl 1 250ml.bag @ 14. 2835 UNITS/KG/HR 23 mls/ hr IV .[id number] [facility] Rx#: [id number] Oral 1100 240 Other: Voiding Method Toilet Toilet # Voids 1 2 - Exam GENERAL: The patient is alert and oriented x3, not in any acute distress. Well developed, well nourished. HEENT: Pupils are round and equally reacting to light. EOMI. No scleral icterus. No conjunctival pallor. Normocephalic, atraumatic. No pharyngeal erythema. No thyromegaly. CARDIOVASCULAR: S1 and S2 present. No murmurs, rubs, or gallops. PULMONARY: Chest is clear to auscultation, no wheezing or crackles. ABDOMEN: Soft, nontender, nondistended, normoactive bowel sounds. No palpable organomegaly. MUSCULOSKELETAL: No joint swelling or deformity. -EXTREMITIES: No cyanosis, clubbing, or pedal edema. right leg swelling, or nontender. No right knee swelling. Right knee immobilizer is in place NEUROLOGICAL: Gross neurological examination did not reveal any focal deficits. SKIN: No rashes. - Labs CBC & Chem 7: 02/15/19 08:30 02/14/19 06:56 Labs: Abnormal Lab Results - Last 24 Hours (Table) 02/14/19 02/14/19 02/14/19 Range/Units 11:52 16:57 20:39 RBC (4.30-5.90) m/uL PT (9.0-12.0) sec INR (<1.2) APTT (22.0-30.0) sec POC Glucose (mg/dL) 214 H 244 H 168 H (75-99) mg/dL 02/15/19 02/15/19 02/15/19 Range/Units 06:57 08:30 08:30 RBC 4.02 L (4.30-5.90) m/uL PT 15.0 H (9.0-12.0) sec INR 1.5 H (<1.2) APTT 108.0 H* (22.0-30.0) sec POC Glucose (mg/dL) 140 H (75-99) mg/dL Assessment and Plan Assessment: - Right lower extremity DVT. On anticoagulation - Acute tear of the medial collateral ligament of the right knee - Right knee swelling secondary to his trauma. Status post bloody knee aspirate x 3 - Right knee pain, secondary to above - Obesity - MEKA - Hypertension - Diabetes Plan: This is a pleasant 58 years old male who presents with acute right DVT. Patient has a primary care doctor [place] where he plans to follow up after discharge. However patient remains on heparin drip while the Coumadin was started, continue to monitor INR goal INR is 2-3. Patient states that he has no medical insurance therefore oral anticoagulants will be limited to Coumadin for financial reasons. Right knee immobilizer is in place. Orthopedic and vascular surgery team are following the patient patient will need follow-up with orthopedic and vascular surgery after discharge and patient agrees. Continue with symptomatic treatment and pain control. Further recommendation as per medical progress DVT prophylaxis: heparin GI Prophylaxis: Pepcid PT/OT: Pending Prognosis is guarded
[2019-02-15] MEDS: SYMBICORT 160-4.5 MCG INHALER INHALATION SCH (11:26)
[2019-02-15 11:33] LABS: Glucose,Whole Blood 197 mg/dL (75-99)
[2019-02-15] MEDS: HEPARIN SOD,PORK IN 0.45% NACL 25,000 UNIT in 0.45% NACL 1 250ML.BAG IV SCH (14:17)
[2019-02-15] MEDS: ALBUTEROL NEBULIZED 2.5 MG/3 ML INHALATION PRN (15:24)
[2019-02-15 16:43] LABS: Glucose,Whole Blood 170 mg/dL (75-99)
[2019-02-15] MEDS: ALPRAZolam 0.5 MG TAB PO PRN (16:57)
[2019-02-15] MEDS: HYDROmorphone 1 MG/ML 1 ML SYRINGE IVP PRN ×2 (17:19→22:20)
[2019-02-15] MEDS ORDERED: WARFARIN 10 MG TAB PO ONE ×2 (18:00)
[2019-02-15] MEDS ORDERED: WARFARIN 7.5 MG TAB PO ONE (18:00)
[2019-02-15 19:57] LABS: Glucose,Whole Blood 188 mg/dL (75-99)
[2019-02-15] MEDS: GABAPENTIN 400 MG CAP PO SCH (20:39)
[2019-02-15] MEDS: traZODone HCL 100 MG TAB PO SCH (20:39)
[2019-02-16] MEDS: HEPARIN SOD,PORK IN 0.45% NACL 25,000 UNIT in 0.45% NACL 1 250ML.BAG IV SCH (04:57)
[2019-02-16 06:59] LABS: Glucose,Whole Blood 150 mg/dL (75-99)
[2019-02-16] MEDS: INSULIN ASPART (NovoLOG) 100 UNIT/ML VIAL SQ SCH ×4 (07:32→20:16)
[2019-02-16] MEDS: ATORVASTATIN 10 MG TAB PO SCH (07:33)
[2019-02-16] MEDS: PANTOPRAZOLE 40 MG TABLET PO SCH (07:33)
[2019-02-16] MEDS: LISINOPRIL-HCTZ 20-25 MG 1 EACH TAB PO SCH (07:33)
[2019-02-16] MEDS: GABAPENTIN 100 MG CAP PO SCH (07:33)
[2019-02-16] MEDS: clonazePAM 0.5 MG TAB PO SCH (07:33)
[2019-02-16] MEDS: GLIMEPIRIDE 4 MG TAB PO SCH ×2 (07:33→20:16)
[2019-02-16] MEDS: HYDROmorphone 1 MG/ML 1 ML SYRINGE IVP PRN ×4 (07:37→21:32)
[2019-02-16 08:51] LABS: Basophils % (A) 0 %; Eosinophils # (A) 0.1 k/uL (0-0.7); Eosinophils % (A) 1 %; HCT 41.9 % (39.0-53.0); HGB 14.1 gm/dL (13.0-17.5); Lymphocytes # (A) 1.5 k/uL (1.0-4.8); Lymphocytes % (A) 18 %; MCH 32.4 pg (25.0-35.0); MCHC 33.6 g/dL (31.0-37.0); MCV 96.3 fL (80.0-100.0); Mean Platelet Volume 7.7; Monocytes # (A) 0.5 k/uL (0-1.0); Monocytes % (A) 5 %; Neutrophils # (A) 6.4 k/uL (1.3-7.7); Neutrophils % (A) 74 %; Platelet Count 298 k/uL (150-450); Poikilocytosis Slight; RBC 4.35 m/uL (4.30-5.90); RDW 14.5 % (11.5-15.5); WBC 8.6 k/uL (3.8-10.6)
[2019-02-16 09:03] LABS: INR 2.1 (<1.2); Partial Thromboplastin Time 64.1 sec (22.0-30.0); Prothrombin Time 20.6 sec (9.0-12.0)
--- NOTE | 2019-02-16 09:34 | P.PN ---
Subjective This is a pleasant 58 years old male with past medical history of heart failure, COPD, hypertension, sleep apnea on CPAP/BiPAP. Presents with fall, right knee injury and right DVT. Patient has already been started on heparin drip. When I saw the patient today for the first time he was resting in bed comfortable, not in distress. No chest pain or dyspnea. He still have some right leg pain and swelling although it is improving significantly. Also patient has been evaluated by orthopedic team, is a status post right knee aspiration. Patient is mobile with no difficulty discussed with staff 02/12/2019 Patient still on heparin drip for his right DVT. Patient is fully awake with no chest pain or dyspnea however this complaining from pain in his right leg. GEE hoses in a Place. Vitthais looks stable. Pharmacy to dose, his attending 5 mg tonight. Is currently on Tylenol No. 3 and morphine, we'll consider Ultram. Patient felt more comfortable with. Discussed with the staff. Cardiology team input is appreciated and they recommended stress test as an outpatient . Orthopedic team following the patient closely and the recommended knee immobilizer went up. food preparation worker consulted 02/13/2019 Patient is fully awake and oriented. He remains on anticoagulation with warfarin and heparin bridging his INR today is 1.1, he received milligrams of Coumadin yesterday. We'll give him another 10 mg today. Vascular surgery recommended to continue with anticoagulation. And follow-up with vascular surgery in one week. Patient was complaining from pain in his right leg over yesterday and today. We called vascular and orthopedic team for follow-up today. Vascular surgery they signed off and the recommended patient to follow- up with them in 1 week. While orthopedic team dated aspiration of the right knee. 02/14/2019 Patient is doing well today with less pain in his right knee after second aspiration of his knee. The aspirate was bloody as expected as patient is on heparin drip. However we will continue with anticoagulation as the benefits more than the risks. Patient got his knee immobilizer today and is in place. Patient is hemodynamically stable with no fever. Labs from today were unremarkable with stable hemoglobin. Sugar is controlled. Orthopedic and vascular surgery input is appreciated. His INR still 1.0 after 3 days of 10, 7, 10 mg of Coumadin. Executive Staff Assistant recommended stress testing outpatient. Patient is aware of this recommendation. Also I discussed with the patient the need to follow-up with vascular surgery and orthopedic as an outpatient and if he has going to have recurrent bleeding into the knee joint he might need MRI. Patient verbalized understanding and acceptance and stated he will try to stay for 1 week in [place] after being discharged from the hospital. 02/15/2019 Patient is awake, no chest pain or dyspnea. He is having right knee swelling for 3 time while he is on heparin drip. Patient has to be on anticoagulation because of his DVT and risk of pulmonary embolism and . Orthopedic team R following the case and there were. Patient might need another aspiration of his right knee. Patient is hemodynamically stable. His INR is today is 1.5 after 20 mg of Coumadin yesterday. We're going to give him coumadine 17.5 mg daily. His sugar is controlled and his hemoglobin is stable. 02/16/2019 Patient no chest pain and he denies dyspnea. He is fully awake. His right knee is tense, and swollen. There is still on heparin drip which is going to be stopped as his INR is 2.1, we going to continue with coumadine 15 mg today and check his INR tomorrow. Hemoglobin remains stable and patient without leukocytosis Vitas looks stable as well and he is afebrile. Patient will need orthopedic follow-up. And for possible aspiration of the right knee. Also we' ll ask for physical therapy evaluation mental health social worker. Phone number for the [employer] is provided for the patient. Patient told me today that he himself has already spoken to his PCP Dr. Jorge King at [phone] from [place] and updated him with his situation. That he is willing to follow up with his PCP at [place] after discharge even if he has to pay out of pocket. Objective - Vital Signs Vital signs: Vital Signs Temp 98.2 F 02/16/19 07:00 Pulse 79 02/16/19 07:00 Resp 15 02/16/19 07:00 BP 131/84 02/16/19 07:00 Pulse Ox 96 02/16/19 07:00 Intake & Output 02/15/19 02/16/19 02/16/19 18:59 06:59 18:59 Intake Total 1342.564 327.436 240 Balance 1342.564 327.436 240 Intake: Intake, IV Titration 292.564 207.436 Amount Heparin Sod,Pork in 0.45% 292.564 207.436 NaCl 25,000 unit In 0.45 % NaCl 1 250ml.bag @ 14. 2835 UNITS/KG/HR 23 mls/ hr IV .[id number] [facility] Rx#: [id number] Oral 1050 120 240 Other: Voiding Method Toilet Toilet Toilet # Voids 2 1 - Exam GENERAL: The patient is alert and oriented x3, not in any acute distress. Well developed, well nourished. HEENT: Pupils are round and equally reacting to light. EOMI. No scleral icterus. No conjunctival pallor. Normocephalic, atraumatic. No pharyngeal erythema. No thyromegaly. CARDIOVASCULAR: S1 and S2 present. No murmurs, rubs, or gallops. PULMONARY: Chest is clear to auscultation, no wheezing or crackles. ABDOMEN: Soft, nontender, nondistended, normoactive bowel sounds. No palpable organomegaly. MUSCULOSKELETAL: No joint swelling or deformity. -EXTREMITIES: No cyanosis, clubbing, or pedal edema. Right knee swelling NEUROLOGICAL: Gross neurological examination did not reveal any focal deficits. SKIN: No rashes. - Labs CBC & Chem 7: 02/16/19 07:43 02/14/19 06:56 Labs: Abnormal Lab Results - Last 24 Hours (Table) 02/15/19 02/15/19 02/15/19 Range/Units 11:32 15:27 16:42 PT (9.0-12.0) sec INR (<1.2) APTT 80.1 H (22.0-30.0) sec POC Glucose (mg/dL) 197 H 170 H (75-99) mg/dL 02/15/19 02/15/19 02/16/19 Range/Units 19:55 22:41 06:58 PT (9.0-12.0) sec INR (<1.2) APTT 62.1 H (22.0-30.0) sec POC Glucose (mg/dL) 188 H 150 H (75-99) mg/dL 02/16/19 Range/Units 07:43 PT 20.6 H (9.0-12.0) sec INR 2.1 H (<1.2) APTT 64.1 H (22.0-30.0) sec POC Glucose (mg/dL) (75-99) mg/dL Assessment and Plan Assessment: - Right lower extremity DVT. On anticoagulation - Acute tear of the medial collateral ligament of the right knee - Right knee swelling secondary to his trauma. Status post bloody knee aspirate x 3 - Right knee pain, secondary to above - Obesity - MEKA - Hypertension - Diabetes Plan: This is a pleasant 58 years old male who presents with acute right DVT. Patient has a primary care doctor [place] where he plans to follow up after discharge. However patient remains on heparin drip while the Coumadin was started, continue to monitor INR goal INR is 2-3. Patient states that he has no medical insurance therefore oral anticoagulants will be limited to Coumadin for financial reasons. Right knee immobilizer is in place. Orthopedic team are following the patient patient will need follow-up with orthopedic and vascular surgery after discharge and patient agrees. Vascular surgery already decided off. Continue with symptomatic treatment and pain control. Further recommendation as per medical progress DVT prophylaxis: On Coumadin GI Prophylaxis: Pepcid PT/OT: Pending Prognosis is guarded
[2019-02-16] MEDS: Acetaminophen-Codeine 300-30mg TAB PO PRN (11:08)
[2019-02-16 11:32] LABS: Glucose,Whole Blood 168 mg/dL (75-99)
[2019-02-16] MEDS: SYMBICORT 160-4.5 MCG INHALER INHALATION SCH (12:39)
[2019-02-16 15:03] VITALS: BMI 49.5
[2019-02-16 16:55] LABS: Glucose,Whole Blood 181 mg/dL (75-99)
[2019-02-16] MEDS ORDERED: WARFARIN 7.5 MG TAB PO ONE (18:00)
[2019-02-16] MEDS: ALBUTEROL NEBULIZED 2.5 MG/3 ML INHALATION PRN ×2 (19:09→23:57)
[2019-02-16 20:02] LABS: Glucose,Whole Blood 207 mg/dL (75-99)
[2019-02-16] MEDS: GABAPENTIN 400 MG CAP PO SCH (20:16)
[2019-02-16] MEDS: traZODone HCL 100 MG TAB PO SCH (20:16)
[2019-02-16] MEDS: ALPRAZolam 0.5 MG TAB PO PRN (20:21)
[2019-02-17] MEDS: ALBUTEROL NEBULIZED 2.5 MG/3 ML INHALATION PRN ×3 (04:14→11:15)
[2019-02-17] MEDS: Acetaminophen-Codeine 300-30mg TAB PO PRN ×3 (06:32→17:13)
[2019-02-17 07:15] LABS: Glucose,Whole Blood 159 mg/dL (75-99)
[2019-02-17] MEDS: INSULIN ASPART (NovoLOG) 100 UNIT/ML VIAL SQ SCH ×3 (07:45→17:13)
[2019-02-17 07:46] LABS: INR 2.4 (<1.2); Prothrombin Time 23.6 sec (9.0-12.0)
[2019-02-17] MEDS: GLIMEPIRIDE 4 MG TAB PO SCH (07:46)
[2019-02-17] MEDS: clonazePAM 0.5 MG TAB PO SCH (07:46)
[2019-02-17] MEDS: GABAPENTIN 100 MG CAP PO SCH (07:46)
[2019-02-17] MEDS: ATORVASTATIN 10 MG TAB PO SCH (07:46)
[2019-02-17] MEDS: PANTOPRAZOLE 40 MG TABLET PO SCH (07:46)
[2019-02-17] MEDS: HYDROmorphone 1 MG/ML 1 ML SYRINGE IVP PRN (07:55)
[2019-02-17] MEDS: LISINOPRIL-HCTZ 20-25 MG 1 EACH TAB PO SCH (07:55)
[2019-02-17] MEDS ORDERED: LIDOCAINE 1% INJ 10MG/ML (20 ML MDV) SQ ONE (08:34)
[2019-02-17] MEDS: ALPRAZolam 0.5 MG TAB PO PRN (09:56)
[2019-02-17 11:29] VITALS: PULSE 82
[2019-02-17] MEDS: SYMBICORT 160-4.5 MCG INHALER INHALATION SCH (11:33)
[2019-02-17 11:40] LABS: Glucose,Whole Blood 165 mg/dL (75-99)
--- NOTE | 2019-02-17 12:39 | P.PN ---
Subjective Progress Note Date: 02/17/19 This 58-year-old male who is admitted for a right knee injury along with DVT of the right lower extremity.The patient's right knee has been aspirated twice and a cortisone injection was given during this admission. Patient states that his pain flared up again this morning and he has needed Dilaudid for pain. Patient states that he has not been wearing his Jose wrap or a knee immobilizer. Patient is on Coumadin for DVT. Patient denies any fever/chills, numbness, weakness or tingling. Objective - Vital Signs Vital signs: Vital Signs Temp 98.5 F 02/17/19 07:51 Pulse 96 02/17/19 07:51 Resp 18 02/17/19 07:51 BP 133/68 02/17/19 07:51 Pulse Ox 96 02/17/19 07:51 Intake & Output 02/16/19 02/17/19 02/17/19 18:59 06:59 18:59 Intake Total 840 118 Balance 840 118 Weight 161.025 kg Intake: Oral 840 118 Other: Voiding Method Toilet # Voids 1 0 - Exam On exam there is generalized swelling of the right lower extremity. There is mild effusion and swelling over the prepatellar bursa. There is no erythema. There is mild ecchymosis. There is swelling of the right calf. Skin is intact. Patient has limited range of motion of the right knee due to pain and swelling. Sensation intact. Neurovascular status in circulatory status intact. - Labs CBC & Chem 7: 02/16/19 07:43 02/14/19 06:56 Labs: Abnormal Lab Results - Last 24 Hours (Table) 02/16/19 02/16/19 02/16/19 Range/Units 11:31 16:52 19:59 PT (9.0-12.0) sec INR (<1.2) POC Glucose (mg/dL) 168 H 181 H 207 H (75-99) mg/dL 02/17/19 02/17/19 Range/Units 06:41 07:13 PT 23.6 H (9.0-12.0) sec INR 2.4 H (<1.2) POC Glucose (mg/dL) 159 H (75-99) mg/dL Assessment and Plan (1) Knee effusion Current Visit: Yes Status: Acute Code(s): M25.469 - EFFUSION, UNSPECIFIED KNEE SNOMED Code(s): 053270110 (2) Right leg DVT Current Visit: Yes Status: Acute Code(s): I82.401 - ACUTE EMBOLISM AND THOMBOS UNSP DEEP VEINS OF R LOW EXTREM SNOMED Code(s): 479781073 Plan: #1.Right knee is aspirated at bedside after patient consent. Discussed the risk of infection with knee aspiration. Also discussed that the swelling may return after aspiration due to the patient being on Coumadin. The right knee is prepped with ChloraPrep. Under sterile technique a 22-gauge needle is used to anesthetize the knee with 4cc of 1% lidocaine without epinephrine. An 18-gauge needle was then used to aspirate the right knee and 3 cc of blood is obtained. A compressive Jose wrap and knee immobilizer are applied. Patient tolerated the procedure well. The importance of continuing to use the Jose wrap and knee immobilizer to prevent swelling and to prevent further injury is discussed with the patient. Patient is receptive to this plan. #2. No surgical intervention planned. Patient plans to follow-up with an orthopedic physician when he returns home to [place]. Patient is stable for discharge from an orthopedic standpoint.
[2019-02-17 15:19] VITALS: BP 98/60; RESP 15; TEMP 98.1
[2019-02-17 16:51] LABS: Glucose,Whole Blood 204 mg/dL (75-99)
[2019-02-17] MEDS ORDERED: WARFARIN 10 MG TAB PO SCH (18:00)
[2019-02-17] MEDS ORDERED: WARFARIN 7.5 MG TAB PO SCH (18:00)
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
== END 2019-02-17 17:28 | disposition home or self-care (01) | DRG 300 ==
LOC: EC 13:47 → 4SSUR 17:29 → OBSVTOIN 02-10 12:57
PROVIDERS: ADMIT Hospitalist; ATTEND Hospitalist
PROC: 0S9C3ZZ Drainage of Right Knee Joint, Percutaneous Approach (ICD-10-PCS; principal; 2019-02-10)
PROC: 0S9C3ZZ Drainage of Right Knee Joint, Percutaneous Approach (ICD-10-PCS; 2019-02-13)
PROC: 0S9C3ZZ Drainage of Right Knee Joint, Percutaneous Approach (ICD-10-PCS; 2019-02-17)
DX: I82.431 Acute embolism and thrombosis of right popliteal vein (principal); Z68.42 Body mass index [BMI] 45.0-49.9, adult; I82.4Z1 Acute embolism and thrombosis of unspecified deep veins of right distal lower extremity; E11.40 Type 2 diabetes mellitus with diabetic neuropathy, unspecified; I11.0 Hypertensive heart disease with heart failure; I50.9 Heart failure, unspecified; E66.01 Morbid (severe) obesity due to excess calories; F32.9 Major depressive disorder, single episode, unspecified; F41.0 Panic disorder [episodic paroxysmal anxiety]; G47.33 Obstructive sleep apnea (adult) (pediatric); J44.9 Chronic obstructive pulmonary disease, unspecified; M25.461 Effusion, right knee; R07.81 Pleurodynia; M17.11 Unilateral primary osteoarthritis, right knee; S83.411A Sprain of medial collateral ligament of right knee, initial encounter; S80.11XA Contusion of right lower leg, initial encounter; Z87.01 Personal history of pneumonia (recurrent); Z79.51 Long term (current) use of inhaled steroids; Z79.84 Long term (current) use of oral hypoglycemic drugs; Z79.899 Other long term (current) drug therapy; W01.0XXA Fall on same level from slipping, tripping and stumbling without subsequent striking against object, initial encounter; Y92.89 Other specified places as the place of occurrence of the external cause
CPT/HCPCS: 36415; 71275; 80048; 80053; 84484; 85025; 85610; 85730; 93005; 93306; 94640; 94660; 96361; 96365; 96372; 96376; 99285